=== PATIENT | female | born 1940 | race Caucasian/White ===

== ENCOUNTER → 2016-04-20 | Outpatient (CLI) | payer MEDICARE, OTHER ==
[~2016-04-20] MED LIST: AML2.5T PO; AMOX500C2 PO; BETA1TAB15 PO; CALC-250 PO; CYAN50008 PO; ESOM20SU PO; JANUVIA; LISI20TA PO; LOVA20TA2 PO; LSNP20T; MECL25TA56; MTF500T PO; MULT-35 PO; MULT1TAB63; SALM1CAP4 PO; atenolol; calcium
--- OUTSIDE RECORDS SUMMARY | 2016-04-20 11:09 | XMS REPORT | Continuity of Care Document ---
Author Author [facility] Organization [facility] Address Unknown Phone Unavailable Allergies Active Description Code Type Severity Reaction Onset Reported/Identified Relationship to Patient Clinical Status Yes No Known Drug Allergies [id number] Drug Allergy Moderate N/ A 06/09/2007 Yes No Known Drug Allergies [id number] Drug Allergy Unknown N/ A 11/04/2015 Medications Problems Date Dx Coded Attending Type Code Diagnosis Diagnosed By 09/24/2008 Ot 726.0 09/24/2008 Ot V57.1 04/14/2010 Ot 530.81 04/14/2010 Ot 535.40 06/12/2010 Ot 250.00 DIAB DEMETRIA WO COMPL, TYPE II OR UNSPEC TY 06/12/2010 Ot 575.11 CHRONIC CHOLECYSTITIS 06/12/2010 Ot V58.69 OTH MED,LT,CURRENT USE 10/29/2011 Ot 327.23 OBSTRUCTIVE SLEEP APNEA (ADULT) (PEDIATR 11/26/2013 SHERRIE MORALES, STERLING Stanford Ot 562.10 DIVERTICULOSIS COLON (W/O MENT OF HEMORR 11/26/2013 SHERRIE MORALES, STERLING Stanford Ot 787.20 DYSPHAGIA, UNSPECIFIED 11/26/2013 SHERRIE MORALES, STERLING Stanford Ot V76.51 SCREEN MAL NEOP-COLON 01/02/2014 Ot 719.41 01/02/2014 Ot 733.90 01/02/2014 Ot V76.12 01/02/2014 Ot V76.12 01/02/2014 Ot 789.01 01/02/2014 Ot 789.01 01/02/2014 Ot 530.81 01/02/2014 Ot 553.3 01/02/2014 Ot 753.10 01/02/2014 Ot 789.06 01/02/2014 Ot 575.8 01/02/2014 Ot V72.63 01/02/2014 Ot V72.81 01/02/2014 Ot V74.8 01/02/2014 Ot V76.12 01/02/2014 Ot 780.4 01/02/2014 Ot 784.0 01/02/2014 Ot V76.12 01/02/2014 EDGAR DO CECELIA Austin Ot 715.90 01/02/2014 TALA WALTON CECELIA Austin Ot 733.00 01/02/2014 EDGAR DO CECELIA Austin Ot 719.46 01/02/2014 TALA WALTON CECELIA Austin Ot 272.4 01/02/2014 TALA WALTON CECELIA Austin Ot 401.9 01/02/2014 EDGAR DO CECELIA Austin Ot 780.79 01/02/2014 EDGAR DO CECELIA Austin Ot 786.50 01/02/2014 EDGAR DO, CECELIA Austin Ot V76.12 01/02/2014 ALEX MORALES, ZULEIMA Jensen Ot 530.5 01/02/2014 ALEX MORALES, ZULEIMA Jensen Ot 530.81 01/02/2014 ZULEIMA JOHNSON MD Ot 530.89 01/02/2014 ALEX MORALES, ZULEIMA Jensen Ot 553.3 01/02/2014 ZULEIMA JOHNSON MD Ot 787.03 01/02/2014 SHERRIE MORALES, STERLING Stanford Ot V72.84 01/08/2014 SHANNA YODER Ot 784.7 EPISTAXIS 01/09/2014 CECELIA ARZOLA DO Ot 784.7 EPISTAXIS 02/05/2014 ALEX MORALES, ZULEIMA Jensen Ot V76.12 02/25/2014 ZULEIMA JOHNSON MD Ot V76.12 04/12/2014 Ot 787.01 04/12/2014 Ot 789.06 06/11/2015 Ot Z12.31 ENCNTR SCREEN MAMMOGRAM FOR MALIGNANT NE 06/16/2015 Ot Z12.31 ENCNTR SCREEN MAMMOGRAM FOR MALIGNANT NE 07/30/2015 ZAN STEELE DO Ot G47.33 OBSTRUCTIVE SLEEP APNEA (ADULT) (PEDIATR 08/01/2015 CECELIA EDGAR DO Ot M81.0 AGE-RELATED OSTEOPOROSIS W/O CURRENT PAT 08/06/2015 CECELIA EDGAR DO Ot M81.0 AGE-RELATED OSTEOPOROSIS W/O CURRENT PAT 08/15/2015 ZAN STEELE DO Ot E66.9 OBESITY, UNSPECIFIED 08/15/2015 ZAN STEELE DO Ot G47.33 OBSTRUCTIVE SLEEP APNEA (ADULT) (PEDIATR 08/16/2015 ZAN STEELE DO Ot E66.9 OBESITY, UNSPECIFIED 08/16/2015 ZAN STEELE DO Ot G47.33 OBSTRUCTIVE SLEEP APNEA (ADULT) (PEDIATR 08/27/2015 CECELIA EDGAR DO Ot M81.0 AGE-RELATED OSTEOPOROSIS W/O CURRENT PAT 09/03/2015 CECELIA EDGAR DO, Ot M81.0 AGE-RELATED OSTEOPOROSIS W/O CURRENT PAT 11/04/2015 SHERRIE MORALES, STERLING Stanford Ot R11.0 NAUSEA 11/04/2015 SHERRIE MORALES, STERLING Stanford Ot R13.10 DYSPHAGIA, UNSPECIFIED 11/04/2015 SHERRIE MORALES, STERLING Stanford Ot Z01.818 ENCOUNTER FOR OTHER PREPROCEDURAL EXAMIN 11/05/2015 SHERREI MORALES, STERLING Stanford Ot R11.0 NAUSEA 11/05/2015 SHERRIE MORALES, STERLING Stnaford Ot R13.10 DYSPHAGIA, UNSPECIFIED 11/05/2015 SHERRIE MORALES, STERLING Stanford Ot Z01.818 ENCOUNTER FOR OTHER PREPROCEDURAL EXAMIN 11/06/2015 Ot 753.10 CYSTIC KIDNEY DISEASE, UNSPECIFIED 11/06/2015 Ot 789.06 ABDOMINAL PAIN, EPIGASTRIC 11/06/2015 Ot 575.8 DIS OF GALLBLADDER NEC 11/06/2015 Ot V72.63 PRE-PROCEDURAL LABORATORY EXAMINATION 11/06/2015 Ot V72.81 TITT-QBF-KHWLABSUN CARDIOVASCULAR 11/06/2015 Ot V74.8 SCREEN-BACTERIAL DIS NEC 11/06/2015 Ot V76.12 OTH SCREEN MAMMO-MALIGN NEOPLASM OF MJ 11/06/2015 Ot 780.4 DIZZINESS AND GIDDINESS 11/06/2015 Ot 784.0 HEADACHE 11/06/2015 Ot V76.12 OTH SCREEN MAMMO-MALIGN NEOPLASM OF MJ 11/06/2015 CECELIA EDGAR DO Ot 715.90 OSTEOARTHROS NOS-UNSPEC 11/06/2015 CECELIA EDGAR DO Ot 733.00 OSTEOPOROSIS NOS 11/06/2015 CECELIA EDGAR DO Ot 719.46 JOINT PAIN-L/LEG 11/06/2015 CECELIA EDGAR DO Ot 272.4 HYPERLIPIDEMIA NEC/NOS 11/06/2015 CECELIA EDGAR DO Ot 401.9 HYPERTENSION NOS 11/06/2015 CECELIA EDGAR DO Ot 780.79 OTH MALAISE FATIGUE 11/06/2015 CECELIA EDGAR DO Ot 786.50 CHEST PAIN NOS 11/06/2015 CECELIA EDGAR DO Ot V76.12 OTH SCREEN MAMMO-MALIGN NEOPLASM OF MJ 11/06/2015 ZULEIMA JOHNSON MD Ot 530.5 DYSKINESIA OF ESOPHAGUS 11/06/2015 ZULEIMA JOHNSON MD Ot 530.81 ESOPHAGEAL REFLUX 11/06/2015 ZULEIMA JOHNSON MD Ot 530.89 ESOPHAGUS DISORDERS NEC 11/06/2015 ZULEIMA JOHNSON MD Ot 553.3 DIAPHRAGMATIC HERNIA 11/06/2015 ZULEIMA JOHNSON MD Ot 787.03 VOMITING ALONE 11/06/2015 SHERRIE MORALES, STERLING Stanford Ot V72.84 EXAM PRE-OPERATIVE NOS 11/06/2015 ZULEIMA JOHNSON MD Ot V76.12 OTH SCREEN MAMMO-MALIGN NEOPLASM OF MJ 11/06/2015 Ot 787.01 NAUSEA WITH VOMITING 11/06/2015 Ot 789.06 ABDOMINAL PAIN, EPIGASTRIC 11/06/2015 Ot Z12.31 ENCNTR SCREEN MAMMOGRAM FOR MALIGNANT NE 11/06/2015 ZAN STEELE DO Ot E66.9 OBESITY, UNSPECIFIED 11/06/2015 ZAN STEELE DO Ot G47.33 OBSTRUCTIVE SLEEP APNEA (ADULT) (PEDIATR 11/06/2015 CECELIA EDGAR DO Ot M81.0 AGE-RELATED OSTEOPOROSIS W/O CURRENT PAT 11/06/2015 SHERRIE MORALES, STERLING Stanford Ot K22.2 ESOPHAGEAL OBSTRUCTION 11/06/2015 SHERRIE MORALES, STERLING Stanford Ot K25.9 GASTRIC ULCER, UNSP ACUTE OR CHRONIC, 11/06/2015 STERLING BALDERAS MD Ot K29.80 DUODENITIS WITHOUT BLEEDING 11/12/2015 STERLING BALDERAS MD Ot K22.2 ESOPHAGEAL OBSTRUCTION 11/12/2015 STERLING BALDERAS MD Ot K25.9 GASTRIC ULCER, UNSP ACUTE OR CHRONIC, 11/12/2015 STERLING BALDERAS MD Ot K29.80 DUODENITIS WITHOUT BLEEDING 11/17/2015 STERLING BALDERAS MD Ot K22.2 ESOPHAGEAL OBSTRUCTION 11/17/2015 STERLING BALDERAS MD Ot K25.9 GASTRIC ULCER, UNSP ACUTE OR CHRONIC, 11/17/2015 STERLING BALDERAS MD Ot K29.80 DUODENITIS WITHOUT BLEEDING Procedures Results Encounters ACCT No. Visit Date/Time Discharge Status Pt. Type Provider Facility Loc./Unit Complaint [id number] 11/06/2015 08:08:00 2015 11:05:00 DIS Outpatient STERLING BALDERAS MD [facility] DYSPHAGIA;NAUSEA [id number] 11/04/2015 05:50:00 2015 12:15:00 DIS Outpatient STERLING BALDERAS MD [facility] PREOP DYSPHAGIA;NAUSEA [id number] 07/29/2015 20:40:00 2015 06:15:00 DIS Outpatient ZAN STEELE DO [facility] SLEEP CHANTE,HYPERSOMNIA,EXCESSIVE DAYTIME SLEEP [id number] 01/10/2014 14:21:00 2013 23:59:59 CLS Outpatient ZULEIMA JOHNSON MD [facility] RAD SCREENING [id number] 01/08/2014 23:12:00 2013 00:06:00 DIS Emergency CECELIA ARZOLA DO [facility] ER NOSE BLEED [id number] 01/08/2014 17:05:00 2013 18:45:00 DIS Emergency SHANNA YODER [facility] ER NOSE BLEED [id number] 11/26/2013 09:58:00 2013 13:15:00 DIS Outpatient STERLIGN BALDERAS MD [facility] DYSPHASIA; COLITIS; SCREENING [id number] 11/22/2013 07:20:00 2013 23:59:59 CLS Outpatient STERLING BALDERAS MD [facility] PREOP DYSPHASIA; COLITIS; SCREENING [id number] 11/14/2013 08:25:00 2013 23:59:59 CLS Outpatient ZULEIMA JOHNSON MD [facility] RAD INTERMITTANT EMESIS,GERD [id number] 01/10/2013 08:52:00 2012 23:59:59 CLS Outpatient TALA WALTON CECELIA Austin [facility] RAD SCREENING [id number] 01/02/2013 06:39:00 2012 23:59:59 CLS Outpatient CECELIA EDGAR DO [facility] RAD FATIGUE,HTN [id number] 09/29/2012 13:43:00 2012 23:59:59 CLS Outpatient CECELIA EDGAR DO [facility] RAD RT KNEE PAIN [id number] 06/30/2012 08:31:00 2012 23:59:59 CLS Outpatient TALA WALTONCECELIA Austin [facility] RAD OSTEOPOROSIS [id number] 07/31/2015 09:08:00 ACT Outpatient CECELIA EDGAR DO [facility] RAD OSTEOPOROSIS M81.0 [id number] 07/16/2015 12:41:00 ACT Outpatient ZAN STEELE DO [facility] RT CHANTE ON CPAP,OBESITY [id number] 05/22/2015 10:02:00 Document Registration [id number] 04/11/2014 07:00:00 Document Registration [id number] 01/02/2014 16:10:00 Document Registration [id number] 12/23/2011 08:31:00 Document Registration [id number] 10/28/2011 21:30:00 Document Registration [id number] 06/15/2011 13:50:00 Document Registration [id number] 12/21/2010 07:19:00 Document Registration [id number] 06/12/2010 05:36:00 Document Registration [id number] 06/08/2010 09:16:00 Document Registration [id number] 05/21/2010 12:15:00 Document Registration [id number] 04/15/2010 07:28:00 Document Registration [id number] 04/14/2010 09:38:00 Document Registration [id number] 03/31/2010 07:39:00 Document Registration [id number] 03/30/2010 10:52:00 Document Registration [id number] 12/18/2009 09:29:00 Document Registration [id number] 12/02/2008 09:11:00 Document Registration [id number] 09/24/2008 10:43:00 Document Registration [id number] 07/24/2008 13:11:00 Document Registration
--- NOTE | 2016-04-20 12:58 | Diagnostic Imaging Report ---
PROCEDURE: MRI lumbar spine. TECHNIQUE: Multiplanar, multisequence MRI of the lumbar spine was performed without contrast. INDICATION: Low back pain. FINDINGS: There is minimal retrolisthesis of L1 over L2. The vertebral body heights are preserved. There is disc desiccation at all levels. There is mild disc height loss at L2/3 and L3/4 levels. The bone marrow demonstrates mild endplate edema posteriorly around L3/4 and anteriorly around L1/2 discs. The cauda equina and the conus medullaris appear grossly unremarkable. The cord terminates at the upper L1 level. T12/L1: There is a mild disc bulge with no spinal canal or foraminal stenosis. L1/2: There is minimal retrolisthesis and mild disc bulge. No spinal canal or foraminal stenosis. L2/3: There is a mild disc bulge with no central canal, lateral recess, or foraminal stenosis. L3/4: There is a mild disc bulge and mild facet hypertrophy. No central canal stenosis. There is mild narrowing of the left lateral recess. The right lateral recess is patent. The foramina demonstrate mild narrowing on the left side only. L4/5: There is mild disc bulge and mild facet arthropathy. No central canal or lateral recess stenosis. The foramina demonstrate minimal stenosis bilaterally. L5/S1: There is a mild disc bulge, eccentric to the right with prominent right posterolateral and foraminal components of the herniated disc. There is izbt-gd-ssnnyxwg facet hypertrophy. No central canal or left lateral recess stenosis. There is moderate right lateral recess stenosis abutting the descending S1 nerve root. There is also dwnzefjt-ie-zzssbb stenosis of the right foramen and mild stenosis of the left neural foramen. 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 IMPRESSION: Degenerative changes as described. At L5/S1, there is moderate right lateral recess stenosis abutting the descending right S1 nerve root and right foraminal stenosis with slight compression of the exiting right L5 spinal nerve. Dictated by: Dictated on workstation # [id number]
== END ==
LOC: RAD 11:06
PROVIDERS: ATTEND Orthopaedic Surgery
DX: M51.16 Intervertebral disc disorders with radiculopathy, lumbar region (principal)
CPT/HCPCS: 72148

== ENCOUNTER 2016-10-26 20:54 | Outpatient (CLI) | payer MEDICARE, OTHER | END 2016-10-27 06:30 | disposition home or self-care (01) | LOC: SLEEP 20:54 | PROVIDERS: ATTEND Nurse Practitioner Family | DX: G47.33 Obstructive sleep apnea (adult) (pediatric) (principal); G47.419 Narcolepsy without cataplexy; G47.50 Parasomnia, unspecified | CPT/HCPCS: 95811 ==

== ENCOUNTER → 2018-03-02 | Outpatient (CLI) | payer MEDICARE, OTHER ==
--- NOTE | 2018-03-02 16:52 | Diagnostic Imaging Report ---
INDICATION: Osteoporosis with current pathological fracture COMPARISON: 07/31/2015 FINDINGS: AP Spine L1-L4: [BMD (g/cm2): 1.037] [T-Score: -1.4] [Z-Score: -0.1] [BMD Previous: 76.8] [BMD % Change: 11.3] LT Hip Neck: [BMD (g/cm2): 0.830] [T-Score: -1.5] [Z-Score: 0.3] LT Hip Total: [BMD (g/cm2):0.927] [T-Score:-0.6] [Z-Score: 0.9] [BMD Previous: 0.917] [BMD % Change: N/A] RT Hip Neck: [BMD (g/cm2):0.838] [T-Score:-1.4] [Z-Score:0.3] RT Hip Total: [BMD (g/cm2):0.882] [T-score:-1.0] [Z-Score:0.6] [BMD Previous:0.919] [BMD % Change:N/A] *Indicates significant change from prior examination based on 95% confidence level. World Health Organization criteria for BMD interpretation classify patients as Normal (T-score at or above -1.0), Osteopenic (T-score between -1.0 and -2.5) or Osteoporotic (T-score at or below -2.5). LIMITATIONS AND MODIFICATION: None. FRACTURE RISK (FRAX SCORE): The ten year probability of (%): Major Osteoporotic Fracture: [9.9] Hip Fracture: [1.8] IMPRESSION: 1. Osteopenia (Low bone mass). 2. No Significant change in bone mineral density since prior examination. 3. See below National Osteoporosis Foundation guidelines on when to potentially initiate pharmacologic therapy. Based on the National Osteoporosis Foundation Guidelines, pharmacologic treatment should be initiated in any of the following, unless clinical conditions suggest otherwise: * Any patient with prior fragility fracture of the hip or vertebrae. A spine fracture indicates 5X risk for subsequent spine fracture and 2X risk for subsequent hip fracture. * Osteoporosis (T-score <-2.5). * Postmenopausal women and men age 50 and older with low bone mass/osteopenia (T-score between -1.0 and -2.5) by DXA and 10-year major osteoporotic fracture greater than 20% or a 10-year probability of hip fracture greater than 3%. These fracture risks are supplied above in the FRAX score, if applicable. * Clinician judgement and/or patient preferences may indicate treatment for people with 10-year fracture probabilities above or below these levels. Dictated by: Dictated on workstation # [id number]
--- NOTE | 2018-03-02 19:32 | Diagnostic Imaging Report ---
INDICATION: Routine screening. Comparison is made with prior mammogram from 05/22/2015 and 01/10/2014. 2-D and 3-D bilateral screening mammography was performed with a Computer Aided Detection (CAD) system. FINDINGS: Both breasts are heterogeneously dense, limiting the sensitivity of mammography. The benign-appearing nodule with central calcification in the upper central left breast appears stable. There appears to be a new cluster of microcalcifications in the upper aspect of the right breast at anterior depth. Additional views are recommended. No other suspicious abnormality is seen. Axillae are unremarkable. IMPRESSION: Right breast calcifications. Additional views are recommended for further evaluation. ACR BI-RADS Category 0: Incomplete. (Needs additional imaging evaluation). Result letter will be mailed to the patient. Note: At least 10% of breast cancer is not imaged by mammography. Dictated by: Dictated on workstation # [id number]
== END ==
LOC: RAD 09:56
PROVIDERS: ATTEND Internal Medicine
DX: Z13.820 Encounter for screening for osteoporosis (principal); Z12.31 Encounter for screening mammogram for malignant neoplasm of breast; M80.00XA Age-related osteoporosis with current pathological fracture, unspecified site, initial encounter for fracture; M85.89 Other specified disorders of bone density and structure, multiple sites; R92.1 Mammographic calcification found on diagnostic imaging of breast
CPT/HCPCS: 77067; 77080

== ENCOUNTER → 2018-04-13 | Outpatient (CLI) | payer MEDICARE, OTHER ==
--- NOTE | 2018-04-13 19:30 | Diagnostic Imaging Report ---
INDICATION: Right breast calcifications. Patient presents for additional views. Correlation is made with recent screening study from 03/02/2018. Unilateral right 2-D and 3-D diagnostic mammography was performed including magnification CC and ML views as well as a conventional 90-degree lateral view. The current study was also evaluated with a Computer Aided Detection (CAD) system. FINDINGS: Additional views demonstrate a cluster of suspicious microcalcifications in the upper central right breast anterior depth. These are new since prior exam. These do show some pleomorphism. No associated soft tissue mass is identified. IMPRESSION: Suspicious microcalcifications upper central right breast anterior depth, new since 2016. Tissue sampling is recommended. These would be amenable to stereotactic biopsy. Findings and recommendations were discussed with the patient at the time of the exam. ACR BI-RADS Category 4: Suspicious abnormality. Result letter will be mailed to the patient. Note: At least 10% of breast cancer is not imaged by mammography. Dictated by: Dictated on workstation # [id number]
== END ==
LOC: RAD 12:39
PROVIDERS: ATTEND Internal Medicine
DX: R92.1 Mammographic calcification found on diagnostic imaging of breast (principal)

== ENCOUNTER → 2018-04-26 | Outpatient (CLI) | payer MEDICARE, OTHER ==
[~2018-04-26] VITALS: Ht 162.6 cm; Wt 83.9 kg
[~2018-04-26] MED LIST changes: +LIDOCAINE 1% INJ 20 ML 20 ML VIAL INJ ONE
--- NOTE | 2018-04-26 20:58 | Diagnostic Imaging Report ---
INDICATION: Right breast calcifications. Patient presents for right breast stereotactic biopsy. PROCEDURE: Patient was brought to the stereotactic suite and placed in chair in the sitting upright position. The right breast was positioned in a craniocaudal manner. Calcifications in the superior right breast at mid depth were stereotactically targeted. The skin of the right breast was then prepped and draped in the usual sterile fashion. A small amount of 1% lidocaine was utilized for local anesthesia. An 8-gauge stereotactic needle was advanced into the right breast per stereotactic coordinates. A total of four core biopsies were obtained with the 8-gauge needle and a vacuum assisted device. Specimen radiograph does show microcalcifications in all four specimens. The marker clip was then deployed. Needle was removed and hemostasis was obtained using manual compression. Followup CC and ML mammography demonstrates postbiopsy changes in the right breast with marker clip in place. Previously noted calcifications appear to have been removed. IMPRESSION: Successful right breast stereotactic biopsy of suspicious microcalcifications, as described. Pathology results are currently pending. Dictated by: Dictated on workstation # [id number]
== END ==
LOC: RAD 09:16
PROVIDERS: ATTEND Internal Medicine
DX: D05.11 Intraductal carcinoma in situ of right breast (principal)
CPT/HCPCS: 19081; 88305; 88360

== ENCOUNTER 2018-09-06 08:37 | Outpatient (RCR) | payer MEDICARE, OTHER ==
[2018-07-21 10:03] LABS: BASOPHILS # (AUTO) 0.1 10^3/uL (0.0-0.1); BASOPHILS % (AUTO) 1 % (0-10); EOSINOPHILS # (AUTO) 0.2 10^3/uL (0.0-0.3); EOSINOPHILS % (AUTO) 2 % (0-10); HEMATOCRIT 39 % (35-52); LYMPHOCYTES # (AUTO) 1.7 X 10^3 (1.0-4.0); LYMPHOCYTES % (AUTO) 21 % (12-44); MEAN CORPUSCULAR HEMOGLOBIN 29 PG (25-34); MEAN CORPUSCULAR HGB CONC 34 G/DL (32-36); MEAN CORPUSCULAR VOLUME 86 FL (80-99); MEAN PLATELET VOLUME 10.1 FL (7.4-10.4); MONOCYTES # (AUTO) 0.6 X 10^3 (0.0-1.0); MONOCYTES % (AUTO) 7 % (0-12); NEUTROPHILS # (AUTO) 5.5 X 10^3 (1.8-7.8); NEUTROPHILS % (AUTO) 69 % (42-75); PLATELET COUNT 421 10^3/uL (130-400); RED CELL DISTRIBUTION WIDTH 13.4 % (10.0-14.5)
[2018-07-21 10:19] LABS: ALBUMIN 4.1 GM/DL (3.2-4.5); BILIRUBIN,TOTAL 0.4 MG/DL (0.1-1.0); CALCIUM 9.3 MG/DL (8.5-10.1); CREATININE SERUM 0.93 MG/DL (0.60-1.30); POTASSIUM 3.4 MMOL/L (3.6-5.0); TOTAL PROTEIN 6.6 GM/DL (6.4-8.2)
[~2018-09-06 08:37] MED LIST changes: -LIDOCAINE 1% INJ 20 ML 20 ML VIAL INJ ONE
[2018-09-06 08:55] LABS: BASOPHILS # (AUTO) 0.1 10^3/uL (0.0-0.1); BASOPHILS % (AUTO) 1 % (0-10); EOSINOPHILS # (AUTO) 0.2 10^3/uL (0.0-0.3); EOSINOPHILS % (AUTO) 4 % (0-10); HEMATOCRIT 40 % (35-52); HEMOGLOBIN 13.2 G/DL (11.5-16.0); LYMPHOCYTES # (AUTO) 1.4 X 10^3 (1.0-4.0); LYMPHOCYTES % (AUTO) 22 % (12-44); MEAN CORPUSCULAR HEMOGLOBIN 29 PG (25-34); MEAN CORPUSCULAR HGB CONC 33 G/DL (32-36); MEAN CORPUSCULAR VOLUME 88 FL (80-99); MONOCYTES # (AUTO) 0.6 X 10^3 (0.0-1.0); MONOCYTES % (AUTO) 8 % (0-12); NEUTROPHILS # (AUTO) 4.3 X 10^3 (1.8-7.8); NEUTROPHILS % (AUTO) 65 % (42-75); PLATELET COUNT 334 10^3/uL (130-400); RED CELL DISTRIBUTION WIDTH 13.3 % (10.0-14.5); WHITE BLOOD COUNT 6.6 10^3/uL (4.3-11.0)
[2018-09-06 09:13] LABS: BILIRUBIN,TOTAL 0.4 MG/DL (0.1-1.0); CALCIUM 9.5 MG/DL (8.5-10.1); CREATININE SERUM 1.08 MG/DL (0.60-1.30); POTASSIUM 3.4 MMOL/L (3.6-5.0); TOTAL PROTEIN 6.5 GM/DL (6.4-8.2)
== END 2018-10-03 | disposition home or self-care (01) ==
LOC: ONC 08:37
PROVIDERS: ATTEND Internal Medicine Hematology & Oncology
DX: Z51.0 Encounter for antineoplastic radiation therapy (principal); D05.11 Intraductal carcinoma in situ of right breast
CPT/HCPCS: 36415; 77280; 77290; 77295; 77300; 77307; 77334; 77336; 77417; 80053; 85025; 99202; 99204; 99213

== ENCOUNTER → 2018-12-13 | Outpatient (CLI) | payer MEDICARE, OTHER ==
--- NOTE | 2018-12-13 13:21 | Diagnostic Imaging Report ---
INDICATION: Right breast carcinoma, status post lumpectomy. COMPARISON: Correlation is made with the prior mammograms of 04/13/2018, 04/26/2018, and 05/22/2015. TECHNIQUE: Unilateral right 2D and 3D diagnostic mammography was performed with CAD. FINDINGS: There are post lumpectomy changes in the right breast. Overall increased density at the lumpectomy site is noted, likely owing to scarring. No recurrent mass or suspicious microcalcifications are seen. The right axilla is unremarkable. IMPRESSION: Stable post therapeutic changes in the right breast. Continued followup at 6 months is recommended to confirm stability. ACR BI-RADS Category 2: Benign findings. Result letter will be mailed to the patient. Note: At least 10% of breast cancer is not imaged by mammography. Dictated by: Dictated on workstation # [id number]
== END ==
LOC: RAD 12:37
PROVIDERS: ATTEND Internal Medicine Hematology & Oncology
DX: D05.11 Intraductal carcinoma in situ of right breast (principal); Z90.11 Acquired absence of right breast and nipple; Z98.890 Other specified postprocedural states

== ENCOUNTER 2018-12-18 10:42 | Outpatient (RCR) | payer MEDICARE, OTHER ==
[2018-12-18 10:59] LABS: BASOPHILS % (AUTO) 1 % (0-10); EOSINOPHILS # (AUTO) 0.2 10^3/uL (0.0-0.3); EOSINOPHILS % (AUTO) 2 % (0-10); HEMATOCRIT 39 % (35-52); LYMPHOCYTES # (AUTO) 1.5 X 10^3 (1.0-4.0); LYMPHOCYTES % (AUTO) 24 % (12-44); MEAN CORPUSCULAR HEMOGLOBIN 29 PG (25-34); MEAN CORPUSCULAR HGB CONC 33 G/DL (32-36); MEAN CORPUSCULAR VOLUME 89 FL (80-99); MONOCYTES # (AUTO) 0.6 X 10^3 (0.0-1.0); MONOCYTES % (AUTO) 9 % (0-12); NEUTROPHILS % (AUTO) 64 % (42-75); PLATELET COUNT 281 10^3/uL (130-400); RED CELL DISTRIBUTION WIDTH 13.5 % (10.0-14.5); WHITE BLOOD COUNT 6.2 10^3/uL (4.3-11.0)
[2018-12-18 11:20] LABS: ALBUMIN 3.9 GM/DL (3.2-4.5); BILIRUBIN,TOTAL 0.3 MG/DL (0.1-1.0); POTASSIUM 4.1 MMOL/L (3.6-5.0); TOTAL PROTEIN 6.4 GM/DL (6.4-8.2)
== END 2019-03-18 | disposition home or self-care (01) ==
LOC: ONC 10:42
PROVIDERS: ATTEND Internal Medicine Hematology & Oncology
DX: D05.11 Intraductal carcinoma in situ of right breast (principal); Z90.11 Acquired absence of right breast and nipple; Z98.890 Other specified postprocedural states
CPT/HCPCS: 36415; 80053; 85025; 99213

== ENCOUNTER → 2019-06-21 | Outpatient (CLI) | payer MEDICARE, OTHER ==
--- NOTE | 2019-06-21 11:15 | Diagnostic Imaging Report ---
INDICATION: Right breast carcinoma status post lumpectomy. CORRELATION is made with prior right mammogram from 12/13/2018 as well as bilateral mammograms dating back to 2016. 2-D and 3-D bilateral diagnostic mammography was performed with CAD. Scattered fibroglandular densities are identified bilaterally. Post lumpectomy changes in the central right breast are noted. The overall increased density described previously at the lumpectomy site shows some decrease. No mass on the right is seen. There are vascular calcifications present. The circumscribed nodule in the upper central left breast is stable. There are benign calcifications on the left. No malignant appearing microcalcifications are seen. Axillae are unremarkable. IMPRESSION: BI-RADS Category 2 Post-therapeutic changes on the right. There are no mammographic features suspicious for malignancy identified. Dictated by: Dictated on workstation # [id number]
== END ==
LOC: RAD 09:17
PROVIDERS: ATTEND Internal Medicine Hematology & Oncology
DX: D05.11 Intraductal carcinoma in situ of right breast (principal); Z98.890 Other specified postprocedural states
CPT/HCPCS: 77062; 77066

== ENCOUNTER → 2019-07-19 | Outpatient (CLI) | payer MEDICARE, OTHER ==
[2019-07-19 10:59] LABS: BASOPHILS # (AUTO) 0.1 10^3/uL (0.0-0.1); BASOPHILS % (AUTO) 1 % (0-10); EOSINOPHILS # (AUTO) 0.1 10^3/uL (0.0-0.3); EOSINOPHILS % (AUTO) 1 % (0-10); HEMATOCRIT 40 % (35-52); HEMOGLOBIN 13.1 G/DL (11.5-16.0); LYMPHOCYTES % (AUTO) 26 % (12-44); MEAN CORPUSCULAR HEMOGLOBIN 29 PG (25-34); MEAN CORPUSCULAR HGB CONC 33 G/DL (32-36); MEAN CORPUSCULAR VOLUME 90 FL (80-99); MEAN PLATELET VOLUME 10.1 FL (7.4-10.4); MONOCYTES # (AUTO) 0.6 X 10^3 (0.0-1.0); MONOCYTES % (AUTO) 9 % (0-12); NEUTROPHILS # (AUTO) 4.7 X 10^3 (1.8-7.8); NEUTROPHILS % (AUTO) 63 % (42-75); PLATELET COUNT 339 10^3/uL (130-400); WHITE BLOOD COUNT 7.5 10^3/uL (4.3-11.0)
[2019-07-19 11:17] LABS: ALBUMIN 3.9 GM/DL (3.2-4.5); BILIRUBIN,TOTAL 0.3 MG/DL (0.1-1.0); CALCIUM 9.4 MG/DL (8.5-10.1); POTASSIUM 3.6 MMOL/L (3.6-5.0); TOTAL PROTEIN 6.8 GM/DL (6.4-8.2)
== END ==
LOC: EDSTATUS 03-19 14:51 → ONC 11:09
PROVIDERS: ATTEND Internal Medicine Hematology & Oncology
DX: D05.11 Intraductal carcinoma in situ of right breast (principal); Z90.11 Acquired absence of right breast and nipple
CPT/HCPCS: 80053; 85025; 99213

== ENCOUNTER → 2020-06-23 | Outpatient (CLI) | payer MEDICARE, OTHER ==
--- NOTE | 2020-06-23 11:22 | Diagnostic Imaging Report ---
EXAMINATION: Digital mammogram bilateral screening with CAD. INDICATION: Screening. COMPARISON: This study was compared to the prior exams of 06/21/2019, 12/13/2018, 04/26/2018, 11/30/2018, and 05/22/2015. PERSONAL HISTORY: At this time, there are no current complaints. The patient has had a lumpectomy for carcinoma on the right in 2019. FINDINGS: The post surgical and post therapeutic changes involving the right breast seen on the prior study are again evident. In the interval since the prior study, a few coarse calcifications have developed in the lumpectomy site. These may well be secondary to fat necrosis. Even so, I would recommend that a compression/magnification view of these calcifications be obtained in the CC and true lateral projections for further study. A true lateral view of the right breast should also be performed. The overall appearance of the right breast has not changed significantly otherwise. There is no primary or secondary sign of malignancy noted. The fibroglandular tissue in both breasts is heterogeneously dense. This does limit the sensitivity of this exam. There is no primary or secondary sign of malignancy noted otherwise. IMPRESSION: Additional mammographic views of the right breast would be recommended for further evaluation of the newly developed calcifications in the lumpectomy site. ACR BI-RADS Category 0: Incomplete. (Needs additional imaging evaluation). Result letter will be mailed to the patient. Note: At least 10% of breast cancer is not imaged by mammography. Dictated by: Dictated on workstation # [id number]
== END ==
LOC: RAD 09:16
PROVIDERS: ATTEND Internal Medicine Hematology & Oncology
DX: Z12.31 Encounter for screening mammogram for malignant neoplasm of breast (principal); D05.11 Intraductal carcinoma in situ of right breast; Z98.890 Other specified postprocedural states
CPT/HCPCS: 77063; 77067

== ENCOUNTER → 2020-06-30 | Outpatient (CLI) | payer MEDICARE, OTHER ==
--- NOTE | 2020-06-30 13:39 | Diagnostic Imaging Report ---
INDICATION: Right breast carcinoma status post lumpectomy. Patient has new calcifications at the lumpectomy site. This study is performed for further evaluation. COMPARISON: Correlation is made with the screening study from 06/23/2020. TECHNIQUE: Unilateral right 2D and 3D diagnostic mammography was performed including magnification CC and ML views as well as conventional 90 degree lateral view. FINDINGS: Lumpectomy changes with multiple surgical clips in the upper central right breast are again noted. There is a mixture of vascular and parenchymal calcifications at the lumpectomy site. The parenchymal calcifications do appear to be benign. No suspicious microcalcifications are seen. No mass is detected. IMPRESSION: No mammographic features suspicious for malignancy are identified. The patient may return to routine screening mammography. ACR BI-RADS Category 2: Benign findings. Result letter will be mailed to the patient. Note: At least 10% of breast cancer is not imaged by mammography. Dictated by: Dictated on workstation # [id number]
== END ==
LOC: RAD 12:13
PROVIDERS: ATTEND Nurse Practitioner Adult Health
DX: R92.8 Other abnormal and inconclusive findings on diagnostic imaging of breast (principal); Z85.3 Personal history of malignant neoplasm of breast; Z90.11 Acquired absence of right breast and nipple
CPT/HCPCS: 77065; G0279

== ENCOUNTER → 2020-07-02 | Outpatient (CLI) | payer MEDICARE, OTHER ==
[2020-07-02 09:57] LABS: BASOPHILS % (AUTO) 0 % (0-10); EOSINOPHILS # (AUTO) 0.2 10^3/uL (0.0-0.3); EOSINOPHILS % (AUTO) 2 % (0-10); HEMATOCRIT 40 % (35-52); LYMPHOCYTES # (AUTO) 1.8 10^3/uL (1.0-4.0); LYMPHOCYTES % (AUTO) 23 % (12-44); MEAN CORPUSCULAR HEMOGLOBIN 29 pg (25-34); MEAN CORPUSCULAR HGB CONC 33 g/dL (32-36); MEAN CORPUSCULAR VOLUME 90 fL (80-99); MEAN PLATELET VOLUME 10.5 fL (9.0-12.2); MONOCYTES # (AUTO) 0.6 10^3/uL (0.0-1.0); MONOCYTES % (AUTO) 8 % (0-12); NEUTROPHILS # (AUTO) 5.3 10^3/uL (1.8-7.8); NEUTROPHILS % (AUTO) 67 % (42-75); PLATELET COUNT 281 10^3/uL (130-400)
[2020-07-02 10:12] LABS: ALBUMIN 3.8 GM/DL (3.2-4.5); BILIRUBIN,TOTAL 0.3 MG/DL (0.1-1.0); CREATININE SERUM 0.99 MG/DL (0.60-1.30); POTASSIUM 3.9 MMOL/L (3.6-5.0); TOTAL PROTEIN 6.1 GM/DL (6.4-8.2)
== END ==
LOC: ONC 09:42
PROVIDERS: ATTEND Internal Medicine Hematology & Oncology
DX: C50.411 Malignant neoplasm of upper-outer quadrant of right female breast (principal); R92.8 Other abnormal and inconclusive findings on diagnostic imaging of breast
CPT/HCPCS: 80053; 85025; G0463; 99213

== ENCOUNTER 2020-12-05 11:03 | Day surgery (SDC) | payer MEDICARE, OTHER ==
[~2020-12-05] VITALS: Ht 162.6 cm; Wt 84.4 kg
[~2020-12-05 11:03] MED LIST changes: -CYAN50008 PO; +CYAN50009 PO
[2020-12-05 11:15] VITALS: BP 185/100
[2020-12-05] MEDS ORDERED: LACTATED RINGERS 1,000 ML IV ONE (11:22)
[2020-12-05] MEDS ORDERED: LACTATED RINGERS 1,000 ML IV STA (11:25)
[2020-12-05] MEDS ORDERED: LIDOCAINE JELLY 2% 6 ML SYRINGE MM PRN (11:30)
--- NOTE | 2020-12-05 11:30 | HISTORY AND PHYSICAL ---
DATE OF SERVICE: EGD HISTORY AND PHYSICAL HISTORY OF PRESENT ILLNESS: The patient is a spry, pleasant 80-year-old white female referred by Dr. Pugh for diagnostic EGD. Tuesday morning, she noted the onset of nausea with some epigastric pain. She vomited, reporting no hematemesis or coffee-ground emesis. She then had several loose stools without blood. She felt better as the day went on, but Tuesday night had epigastric pain and then sudden urge to go, at which time she passed melanotic stool with some reported dark clots. She had another episode of rectal bleeding reportedly very dark red in color on Tuesday and presented to Dr. Pugh's office. There, vital signs were stable. Blood counts were obtained and are pending at this time. 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 She denies lightheadedness or syncope. She reports a distant history of peptic ulcer disease. Certainly, it may have been diagnosed via upper GI. She did have an EGD and a colonoscopy [address] Luna[address] At that time, she had a few antral erosions on the tortuous esophagus and was Helicobacter negative. She had mild diverticular disease with no evidence for neoplasia in regards to her colonoscopy. PAST MEDICAL HISTORY: Significant for ductal carcinoma in situ of the right breast in 2019. She underwent lumpectomy and radiation therapy. She has a history of hypertension, longstanding with no history of coronary artery disease and no reported history of pulmonary disease. She does have a history of allergies, for which she takes Singulair and Zyrtec. ADDITIONAL HISTORY: She had been taking 2 aspirin daily for knee pain for the past month, reporting that she is in need of knee replacement. FAMILY HISTORY: Father had an [place] at the age of 46, but lived to the age of 91. Mother had a stroke in her late 80s and lived to the age of 93. She is not aware of any family history for GI tract malignancy. SOCIAL HISTORY: She is a retired with no past smoking or drinking history. PAST SURGICAL HISTORY: Cholecystectomy, a number of years ago as well as total abdominal hysterectomy and bilateral salpingo-oophorectomy, recent 2019 breast lumpectomy and has had trigger finger repair. REVIEW OF SYSTEMS: CONSTITUTIONAL: The patient previously had been feeling well. Denied change in weight, night sweats, chills or fever. PULMONARY: Denies cough, wheezing or shortness of breath. GASTROINTESTINAL: As noted in the HPI. CARDIAC: Denies chest pain, orthopnea, PND, pedal edema or syncope. PHYSICAL EXAMINATION: GENERAL: Reveals a pleasant white female without significant pallor appear to be in no acute distress. VITAL SIGNS: Weight 188 pounds, blood pressure 118/80. CHEST: Clear. CARDIOVASCULAR: Revealed a regular rate and rhythm without significant murmur, S3 or S4. ABDOMEN: Soft, supple. Epigastric pain to palpation is present without mass or organomegaly. EXTREMITIES: Reveal no cyanosis, clubbing or edema. ASSESSMENT AND PLAN: For further investigation of likely upper gastrointestinal bleed, we will be performing EGD in the morning. Prep instructions were discussed. The patient was advised to abstain from aspirin. She was started on she believes pantoprazole, which she will continue. I thank you for the referral of this pleasant lady. Job ID: [id number] DocumentID: [id number] Dictated Date: 12/04/2020 16:21:08 Process Laboratory Specialist Date: 12/04/2020 16:34:10 Dictated By: GALLITO SCHMID MD
[2020-12-05] MEDS ORDERED: DILT120C85 PO (11:41)
[2020-12-05] MEDS ORDERED: LISI20TA26 PO (11:41)
[2020-12-05] MEDS ORDERED: PANT20TA18 PO (11:41)
[2020-12-05] MEDS ORDERED: proPOfol 200 MG/20 ML (DIPRIVAN) VIAL IV ONE (11:59)
--- NOTE | 2020-12-05 12:05 | Pre-Op Note & Conscious Sedat ---
Pre-Operative Progress Note H&P Reviewed The H&P was reviewed, patient examined and no changes noted. Date H&P Reviewed: Dec 05, 2020 Time H&P Reviewed: 12:00 Conscious Sedation Pre-Proced ASA Score 2 For ASA 3 and 4: Consider anesthesia and medical clearance. Also, for patients with a history of failed moderate sedation consider anesthesia. Airway Lungs Heart ASA score ASA 1: a normal healthy patient ASA 2: a patient with a mild systemic disease (mid diabetes, controlled hypertension, obesity ASA 3: a patient with a severe systemic disease that limits activity (angina, COPD, prior Myocardial infarction) ASA 4: a patient with an incapacitating disease that is a constant threat to life (CHF, renal failure) ASA 5: a moribund patient not expected to survive 24 hrs. (ruptured aneurysm) ASA 6: a declared brain- patient whose organs are being harvested. For emergent operations, add the letter E after the classification Mallampati Classification Grade 2 Sedation Plan Analgesia, Amnesia, Plan communicated to team members, Discussed options with patient/fam, Discussed risks with patient/fam The patient is an appropriate candidate to undergo the planned procedure, sedation, and anesthesia. The patient immediately re-assessed prior to indication. GALLITO SCHMID MD Dec 05, 2020 12:05
[2020-12-05] MEDS: HURRICAINE EXT TUBE (BENZOCAINE) XX PRN ×2 (12:19→12:23)
[2020-12-05 12:30] VITALS: BP 174/81
[2020-12-05 12:35] VITALS: BP_SYST 165; BP_SYST 171; BP_DIAS 74; BP_DIAS 83
--- NOTE | 2020-12-05 12:55 | Anesthesia-General Post-Op ---
MAC Patient Condition Mental Status/LOC: Same as Preop Cardiovascular: Satisfactory Nausea/Vomiting: Absent Respiratory: Satisfactory Pain: Controlled Complications: Absent Post Op Complications Complications None Follow Up Care/Instructions Patient Instructions None needed. Anesthesiology Discharge Order Discharge Order Patient is doing well, no complaints, stable vital signs, no apparent adverse anesthesia problems. No complications reported per nursing. NICKI UGALDE CRNA Dec 05, 2020 12:55
[2020-12-05 13:00] VITALS: BP 198/110
[2020-12-05 13:01] VITALS: BP 198/110
--- NOTE | 2020-12-05 16:13 | OPERATIVE REPORT ---
DATE OF SERVICE: EGD SUMMARY INDICATION FOR THE PROCEDURE: GI bleed. DESCRIPTION OF PROCEDURE: The patient was placed in the left lateral decubitus position. The endoscope was inserted in the oral cavity and under direct visualization, the esophagus was intubated. Endoscope was passed down the esophagus through the stomach into the second portion of the duodenum. A careful inspection was made as the endoscope was withdrawn. FINDINGS: The posterior pharynx, epiglottis, arytenoid aperture and true and false vocal folds were unremarkable to gross inspection. Proximal, mid and distal esophagus were unremarkable. No evidence of rings, webs, strictures, Multani's change or bleeding sites. A small hiatal hernia was present. The cardia, fundus, antrum, pylorus, pyloric channel, duodenal bulb and second portion of duodenum were unremarkable as well. There was no evidence for blood in the upper GI tract. ASSESSMENT: Normal EGD, no potential bleeding sites identified. Discussed findings with the patient. She reports that she has not had any evidence for gross blood in the stool since Tuesday evening. She is advised to continue to abstain from aspirin and nonsteroidal medications utilizing Tylenol as needed for pain. She will call the office on Tuesday. We will see her next week and discuss setting up colonoscopy in the near future. I thank you for the referral of this pleasant lady. Job ID: [id number] DocumentID: [id number] Dictated Date: 12/05/2020 12:55:08 Locator Specialist Date: 12/05/2020 16:12:41 Dictated By: GALLITO SCHMID MD
== END 2020-12-05 13:02 | disposition home or self-care (01) ==
LOC: ENDO 11:03
PROVIDERS: ATTEND Internal Medicine
DX: K92.2 Gastrointestinal hemorrhage, unspecified (principal); K44.9 Diaphragmatic hernia without obstruction or gangrene; K21.9 Gastro-esophageal reflux disease without esophagitis; G47.33 Obstructive sleep apnea (adult) (pediatric); I10 Essential (primary) hypertension; Z79.82 Long term (current) use of aspirin; Z87.891 Personal history of nicotine dependence; Z90.49 Acquired absence of other specified parts of digestive tract; Z79.899 Other long term (current) drug therapy
CPT/HCPCS: 87636

== ENCOUNTER 2020-12-12 05:37 | Outpatient (CLI) | payer MEDICARE, OTHER ==
[~2020-12-12] VITALS: Ht 160.6 cm; Wt 84.4 kg
[~2020-12-12 05:37] MED LIST changes: +DILT120C85 PO; +LISI20TA26 PO; +PANT20TA18 PO
== END 2020-12-15 14:38 | disposition home or self-care (01) ==
LOC: PREOP 05:37
PROVIDERS: ATTEND Internal Medicine
DX: Z01.818 Encounter for other preprocedural examination (principal)

== ENCOUNTER 2020-12-19 09:14 | Day surgery (SDC) | payer MEDICARE, OTHER ==
--- NOTE | 2020-12-14 15:32 | HISTORY AND PHYSICAL ---
DATE OF SERVICE: COLONOSCOPY HISTORY AND PHYSICAL HISTORY: The patient is an 80-year-old white female who underwent EGD evaluation by myself on 12/05/2020 for GI bleed with history of aspirin usage. EGD failed to reveal potential bleeding site. Off of aspirin, she has had no further bleeding, but is scheduled for colonoscopy for further investigation of significant bleeding. She is a referral from Dr. Pugh. She continues to deny abdominal pain or change in bowel habits, has remained off of aspirin and she was taking in the form of a back pain relief [id number]-uso-plmadco aspirin containing medication. She has had no significant flares of stable mechanical low back pain. She did undergo colonoscopy last by Dr. Luna 7 years ago. At that time, she had mild diverticular disease with no evidence for neoplasia. FAMILY HISTORY: She is not aware of any family history for GI tract malignancy. PAST MEDICAL HISTORY: Significant for ductal carcinoma in situ of the right breast in 2019. She underwent lumpectomy and radiation therapy. She has history of hypertension with no history of coronary artery disease and no history of pulmonary disease. PHYSICAL EXAMINATION: GENERAL: Reveals a white female, appeared to be in no acute distress. No evidence of pallor. HEENT: Sclerae nonicteric. HEENT exam unremarkable. CHEST: Clear. CARDIOVASCULAR: Reveals a regular rate and rhythm without significant murmur, S3 or S4. ABDOMEN: Soft, supple without mass, organomegaly or tenderness. EXTREMITIES: Reveal no cyanosis, clubbing or edema. ASSESSMENT AND PLAN: The patient is being set up for diagnostic colonoscopy due to recent GI bleed with negative EGD. Prep instructions were given and questions were answered. Job ID: [id number] DocumentID: [id number] Dictated Date: 12/11/2020 10:14:29 Full Time Paramedic Date: 12/11/2020 10:47:33 Dictated By: GALLITO SCHMID MD
[~2020-12-19] VITALS: Ht 160.6 cm; Wt 84.4 kg
[2020-12-19] MEDS ORDERED: LACTATED RINGERS 1,000 ML IV ONE (09:23)
[2020-12-19] MEDS ORDERED: LIDOCAINE JELLY 2% 6 ML SYRINGE MM PRN (09:30)
[2020-12-19] MEDS ORDERED: LACTATED RINGERS 1,000 ML IV STA (09:30)
[2020-12-19 09:45] VITALS: BP 192/85
--- NOTE | 2020-12-19 11:14 | Pre-Op Note & Conscious Sedat ---
Pre-Operative Progress Note H&P Reviewed The H&P was reviewed, patient examined and no changes noted. Date H&P Reviewed: Dec 19, 2020 Time H&P Reviewed: 10:35 Conscious Sedation Pre-Proced ASA Score 2 For ASA 3 and 4: Consider anesthesia and medical clearance. Also, for patients with a history of failed moderate sedation consider anesthesia. Airway Lungs Heart ASA score ASA 1: a normal healthy patient ASA 2: a patient with a mild systemic disease (mid diabetes, controlled hypertension, obesity ASA 3: a patient with a severe systemic disease that limits activity (angina, COPD, prior Myocardial infarction) ASA 4: a patient with an incapacitating disease that is a constant threat to life (CHF, renal failure) ASA 5: a moribund patient not expected to survive 24 hrs. (ruptured aneurysm) ASA 6: a declared brain- patient whose organs are being harvested. For emergent operations, add the letter E after the classification Mallampati Classification Grade 3 Sedation Plan Analgesia, Amnesia, Plan communicated to team members, Discussed options with patient/fam, Discussed risks with patient/fam The patient is an appropriate candidate to undergo the planned procedure, sedation, and anesthesia. The patient immediately re-assessed prior to indication. GALLITO SCHMID MD Dec 19, 2020 11:14
[2020-12-19] MEDS ORDERED: PROPOFOL INJECTION 50 ML IV ONE (11:54)
[2020-12-19] MEDS ORDERED: ATROPINE INJ 0.4 MG/ML SDV ONE (12:10)
[2020-12-19 12:37] VITALS: BP 169/85
[2020-12-19 12:42] VITALS: BP 175/85
[2020-12-19 12:45] VITALS: BP 175/81
[2020-12-19 13:10] VITALS: BP 170/82
[2020-12-19 13:18] VITALS: BP 170/82
--- NOTE | 2020-12-19 13:35 | Anesthesia-General Post-Op ---
MAC Patient Condition Mental Status/LOC: Same as Preop Cardiovascular: Satisfactory Nausea/Vomiting: Absent Respiratory: Satisfactory Pain: Controlled Complications: Absent Post Op Complications Complications None Follow Up Care/Instructions Patient Instructions None needed. Anesthesiology Discharge Order Discharge Order Patient is doing well, no complaints, stable vital signs, no apparent adverse anesthesia problems. No complications reported per nursing. NICKI UGALDE CRNA Dec 19, 2020 13:35
--- NOTE | 2020-12-19 19:02 | OPERATIVE REPORT ---
DATE OF SERVICE: COLONOSCOPY SUMMARY INDICATION FOR THE PROCEDURE: GI bleed. DESCRIPTION OF PROCEDURE: The patient was placed in the left lateral decubitus position. Prior to undergoing colonoscopy, digital rectal evaluation was performed. Anal sphincter tone was normal. Perianal reflexes intact. A small polyp was noted at the 7 o'clock position just inside the anal verge, it was soft. No induration was noted. No other abnormalities were noted on digital inspection, anal canal or distal rectal vault. Colonoscope was inserted in the rectum and under direct visualization advanced to the cecum. The cecum was identified by identification of the ileocecal valve and cecal strap. Photographic documentation was obtained. Quality of prep was good. FINDINGS: There was no evidence for internal or external hemorrhoids. There was a 6 mm adenomatous appearing vascular polyp noted in the distal rectum. It was photographed and biopsied and ablated with no subsequent blood loss. No other rectal abnormalities were noted. Several small sigmoid diverticulum were present without evidence for diverticulitis. No other sigmoid colonic abnormalities were appreciated. The descending colon, splenic flexure, transverse colon, hepatic flexure, ascending colon and cecum were unremarkable. ASSESSMENT: Vascular adenomatous appearing polyp was noted in the distal rectum, likely source of this patient's bleeding. It was biopsied and ablated. As long as there is no evidence for dysplasia or microscopic malignancy considering this patient's age, we will not advocate future surveillance colonoscopy. I thank you for the referral of this pleasant lady. Job ID: [id number] DocumentID: [id number] Dictated Date: 12/19/2020 13:17:49 Milker Machine Date: 12/19/2020 19:01:41 Dictated By: GALLITO SCHMID MD
== END 2020-12-19 13:20 | disposition home or self-care (01) ==
LOC: ENDO 09:14
PROVIDERS: ATTEND Internal Medicine
DX: K62.1 Rectal polyp (principal); K57.31 Diverticulosis of large intestine without perforation or abscess with bleeding; I10 Essential (primary) hypertension; G47.33 Obstructive sleep apnea (adult) (pediatric); E66.9 Obesity, unspecified; Z68.32 Body mass index [BMI] 32.0-32.9, adult; Z99.89 Dependence on other enabling machines and devices; Z79.899 Other long term (current) drug therapy; Z85.3 Personal history of malignant neoplasm of breast

== ENCOUNTER 2021-03-23 11:52 | Observation (INO) | payer MEDICARE, OTHER ==
[~2021-03-23] VITALS: Ht 162.6 cm; Wt 84.6 kg
[2021-03-23] MEDS ORDERED: ONDANSETRON 4 MG/2 ML (SDV) Z0FRAN ONE (12:02)
--- NOTE | 2021-03-23 12:12 | ED GI ---
General Chief Complaint: Abdominal/GI Problems Stated Complaint: NAUSEA,VOMITING Source of Information: Patient Exam Limitations: No Limitations History of Present Illness Date Seen by Provider: Mar 23, 2021 Time Seen by Provider: 12:10 Initial Comments To ER with nausea vomiting and severe dizziness. This began yesterday. Normal bowel movement this morning. No fever no chills. She was given 25 mg of Phenergan intramuscular by EMS in route to the hospital. Primary care is Dr. Pugh. History of vertigo years ago. She had a headache yesterday but none today. Timing/Duration: 1-2 Days Severity/Quality: Moderate Radiation: No Radiation Allergies and Home Medications Allergies Coded Allergies: No Known Drug Allergies (Unverified , 11/04/15) Patient Home Medication List Home Medication List Reviewed: Yes Diltiazem HCl (Diltiazem ER) 120 Mg Capsule.er, 120 MG PO DAILY, (Reported) Entered as Reported by: VALDEMAR GEORGES on 12/05/20 1141 Lisinopril (Lisinopril) 20 Mg Tablet, 20 MG PO DAILY, (Reported) Entered as Reported by: VALDEMAR GEORGES on 12/05/20 1141 Pantoprazole Sodium (Pantoprazole Sodium) 20 Mg Tablet.dr, 20 MG PO DAILY, (Reported) Entered as Reported by: VALDEMAR GEORGES on 12/05/20 1141 Review of Systems Review of Systems Constitutional: see HPI, dizziness EENTM: No Symptoms Reported Respiratory: No Symptoms Reported Cardiovascular: No Symptoms Reported Gastrointestinal: See HPI, Nausea, Vomiting Genitourinary: No Symptoms Reported Musculoskeletal: no symptoms reported Skin: no symptoms reported Psychiatric/Neurological: No Symptoms Reported Endocrine: No Symptoms Reported Hematologic/Lymphatic: No Symptoms Reported Past Fqgezaq-Cuhsxv-Hqzxbq Hx Immunizations Up To Date First/Initial COVID19 Vaccinat: 03/13 Second COVID19 Vaccination [place]: 04/13 Third COVID19 Vaccination Date: MODERNA Seasonal Allergies Seasonal Allergies: Yes Past Medical History Surgeries: Yes (HYSTERECTOMY X 2, HEART CATH, RIGHT HAND) Gallbladder, Hysterectomy, Orthopedic Respiratory: Yes (SLEEP APNEA, USES BI-PAP) Cardiac: No Hypertension Neurological: No Reproductive Disorders: No Sexually Transmitted Disease: No Genitourinary: No Gastrointestinal: Yes Gastroesophageal Reflux Musculoskeletal: No Endocrine: Yes (PRE DIABETIC) HEENT: Yes Cataract Cancer: Yes (RIGHT BREAST) Breast Did You Recieve Any Treatments: Yes What Type of Treatment Did You: Radiation, Surgical Intervention Psychosocial: No Integumentary: No Blood Disorders: No Family Medical History Diabetes mellitus 19 FATHER G8 SISTER FH: breast cancer G8 SISTER FH: heart disease FH: melanoma G8 BROTHER FH: stroke 19 MOTHER Physical Exam Vital Signs Vital Signs - First Documented 03/23/21 12:08 Temp 36.3 Pulse 76 Resp 18 B/P (MAP) 142/98 (113) Pulse Ox 96 Capillary Refill : Height/Weight/BMI Height: 5'4.00" Weight: 185lbs. 0.0oz. 83.623753nb; 32.72 BMI Method:Stated General Appearance: WD/WN, no apparent distress, other (Alert, answers questions appropriately. Oriented. Appears to feel quite ill. Diaphoretic.) HEENT: PERRL/EOMI, normal ENT inspection Respiratory: no respiratory distress, no accessory muscle use Gastrointestinal: normal bowel sounds, non tender Extremities: normal range of motion, non-tender Neurologic/Psychiatric: alert, normal mood/affect, oriented x 3 Skin: normal color, warm/dry Progress/Results/Core Measures Results/Orders Lab Results Laboratory Tests Test 03/23/21 12:08 03/23/21 13:42 Range/Units White Blood Count 13.1 H 4.3-11.0 10^3/uL Red Blood Count 4.93 3.80-5.11 10^6/uL Hemoglobin 14.7 11.5-16.0 g/dL Hematocrit 46 35-52 % Mean Corpuscular Volume 93 80-99 fL Mean Corpuscular Hemoglobin 30 25-34 pg Mean Corpuscular Hemoglobin Concent 32 32-36 g/dL Red Cell Distribution Width 13.0 10.0-14.5 % Platelet Count 325 130-400 10^3/uL Mean Platelet Volume 10.3 9.0-12.2 fL Immature Granulocyte % (Auto) 0 % Neutrophils (%) (Auto) 80 H 42-75 % Lymphocytes (%) (Auto) 14 12-44 % Monocytes (%) (Auto) 5 0-12 % Eosinophils (%) (Auto) 0 0-10 % Basophils (%) (Auto) 1 0-10 % Neutrophils # (Auto) 10.5 H 1.8-7.8 10^3/uL Lymphocytes # (Auto) 1.9 1.0-4.0 10^3/uL Monocytes # (Auto) 0.7 0.0-1.0 10^3/uL Eosinophils # (Auto) 0.0 0.0-0.3 10^3/uL Basophils # (Auto) 0.1 0.0-0.1 10^3/uL Immature Granulocyte # (Auto) 0.1 0.0-0.1 10^3/uL Prothrombin Time 13.5 12.2-14.7 SEC INR Comment 1.0 0.8-1.4 Sodium Level 141 135-145 MMOL/L Potassium Level 3.9 3.6-5.0 MMOL/L Chloride Level 104 98-107 MMOL/L Carbon Dioxide Level 25 21-32 MMOL/L Anion Gap 12 5-14 MMOL/L Blood Urea Nitrogen 19 H 7-18 MG/DL Creatinine 1.04 0.60-1.30 MG/DL Estimat Glomerular Filtration Rate 54 BUN/Creatinine Ratio 18 Glucose Level 142 H 70-105 MG/DL Calcium Level 9.6 8.5-10.1 MG/DL Corrected Calcium 9.4 8.5-10.1 MG/DL Total Bilirubin 0.3 0.1-1.0 MG/DL Aspartate Amino Transf (AST/SGOT) 18 5-34 U/L Alanine Aminotransferase (ALT/SGPT) 16 0-55 U/L Alkaline Phosphatase 77 40-136 U/L Total Protein 7.7 6.4-8.2 GM/DL Albumin 4.3 3.2-4.5 GM/DL Lipase 41 8-78 U/L Urine Color YELLOW Urine Clarity CLEAR Urine pH 7.0 5-9 Urine Specific Terry 1.020 1.016-1.022 Urine Protein TRACE H NEGATIVE Urine Glucose (UA) NEGATIVE NEGATIVE Urine Ketones NEGATIVE NEGATIVE Urine Nitrite NEGATIVE NEGATIVE Urine Bilirubin NEGATIVE NEGATIVE Urine Urobilinogen 0.2 < = 1.0 MG/DL Urine Leukocyte Esterase NEGATIVE NEGATIVE Urine RBC (Auto) TRACE-I H NEGATIVE Urine RBC NONE /HPF Urine WBC NONE /HPF Urine Crystals NONE /LPF Urine Bacteria NEGATIVE /HPF Urine Casts NONE /LPF Urine Mucus NEGATIVE /LPF Urine Culture Indicated NO My Orders Orders - KIAH NOGUEIRA EDGER SAW OPERATOR Cbc With Automated Diff (03/23/21 11:58) Comprehensive Metabolic Panel (03/23/21 11:58) Lipase (03/23/21 11:58) Ua Culture If Indicated (03/23/21 11:58) Protime With Inr (03/23/21 11:58) Ed Iv/Invasive Line Start (03/23/21 11:58) Abdomen, Flat & Upright/Decub (03/23/21 11:58) Ondansetron Injection (Zofran Injectio (03/23/21 12:15) Ondansetron Injection (Zofran Injectio (03/23/21 12:02) Scopolamine Patch (Transderm-Scop Patch) (03/23/21 12:15) Ct Angio Head/Neck (03/23/21 12:58) Straight Cath (Urinary) (03/23/21 12:58) Iohexol Injection (Omnipaque 350 Mg/Ml 1 (03/23/21 13:30) Received Contrast (Hold Metformin- Contr (03/23/21 13:30) Sodium Chloride Flush (Catheter Flush Sy (03/23/21 13:30) Ns (Ivpb) (Sodium Chloride 0.9% Ivpb Bag (03/23/21 13:30) Medications Given in ED Current Medications Medications Dose Ordered Sig/Valery Route Start Time Stop Time Status Last Admin Dose Admin Ondansetron HCl 8 mg ONCE ONCE IVP 03/23/21 12:15 03/23/21 12:16 DC 03/23/21 12:04 8 MG Scopolamine 1.5 mg ONCE ONCE TD 03/23/21 12:15 03/23/21 12:16 DC 03/23/21 12:32 1.5 MG Vital Signs/I&O 03/23/21 12:08 Temp 36.3 Pulse 76 Resp 18 B/P (MAP) 142/98 (113) Pulse Ox 96 Departure Communication (Admissions) 1347-she is alert and oriented up walking to the bathroom with only standby assistance and reports that she feels much better now. 1506-states that she is had a recurrence of dizziness and nausea. She would prefer not to stay in the hospital but agrees to stay 1 night. Given her advanced age and uncontrollable vomiting and dizziness on arrival and albeit mild but recurrent symptoms it would be best to watch her in the hospital overnight. Spoke with Dr. Bueno he agrees. NAME: JEWEL OLIVO [facility] REC#: [id number] PT STATUS: REG ER : 1940 PHYSICIAN: KIAH NOGUEIRA APRN ADMIT DATE: 03/23/21/ER Draft Date of Exam:03/23/21 ABDOMEN, FLAT & UPRIGHT/DECUB INDICATION: Nausea and vomiting. TIME OF EXAM: 12:25 PM No prior studies are available for comparison. Surgical clips are noted in the gallbladder fossa. Bowel gas pattern appears nonobstructed. No definite free air on this supine radiograph is identified. No pathologic calcifications are seen. There are postop changes of posterior instrument fusion of the lumbosacral spine. IMPRESSION: No acute feature detected. Dictated on workstation # [id number] Dict: 03/23/21 1314 Trans: 03/23/21 1317 [facility] [id number] Interpreted by: LILIANA BARBER MD Electronically signed by: Impression Primary Impression: Intractable vertigo Additional Impression: Nausea & vomiting Disposition: 09 ADMITTED INPATIENT Condition: Stable Admissions Decision to Admit Reason: Admit from ER (General) Decision to Admit/Date: Mar 23, 2021 Time/Decision to Admit Time: 13:17 Departure-Patient Inst. Referrals: CECELIA PUGH DO (PCP/Family) Primary Care Physician KIAH NOGUEIRA APRN Mar 23, 2021 12:12
[2021-03-23] MEDS ORDERED: SCOPOLAMINE 1.5 MG (TRANSDERM-SCOP) PATCH TD ONE (12:15)
[2021-03-23] MEDS ORDERED: ONDANSETRON 4 MG/2 ML (SDV) Z0FRAN IVP ONE (12:15)
[2021-03-23 12:16] LABS: BASOPHILS # (AUTO) 0.1 10^3/uL (0.0-0.1); BASOPHILS % (AUTO) 1 % (0-10); EOSINOPHILS % (AUTO) 0 % (0-10); HEMATOCRIT 46 % (35-52); HEMOGLOBIN 14.7 g/dL (11.5-16.0); LYMPHOCYTES # (AUTO) 1.9 10^3/uL (1.0-4.0); LYMPHOCYTES % (AUTO) 14 % (12-44); MEAN CORPUSCULAR HEMOGLOBIN 30 pg (25-34); MEAN CORPUSCULAR HGB CONC 32 g/dL (32-36); MEAN CORPUSCULAR VOLUME 93 fL (80-99); MEAN PLATELET VOLUME 10.3 fL (9.0-12.2); MONOCYTES # (AUTO) 0.7 10^3/uL (0.0-1.0); MONOCYTES % (AUTO) 5 % (0-12); NEUTROPHILS # (AUTO) 10.5 10^3/uL (1.8-7.8); NEUTROPHILS % (AUTO) 80 % (42-75); PLATELET COUNT 325 10^3/uL (130-400); WHITE BLOOD COUNT 13.1 10^3/uL (4.3-11.0)
[2021-03-23 12:26] LABS: PROTHROMBIN TIME PATIENT 13.5 SEC (12.2-14.7)
[2021-03-23 12:36] LABS: ALBUMIN 4.3 GM/DL (3.2-4.5); BILIRUBIN,TOTAL 0.3 MG/DL (0.1-1.0); CALCIUM 9.6 MG/DL (8.5-10.1); CREATININE SERUM 1.04 MG/DL (0.60-1.30); POTASSIUM 3.9 MMOL/L (3.6-5.0); TOTAL PROTEIN 7.7 GM/DL (6.4-8.2)
--- NOTE | 2021-03-23 13:17 | Diagnostic Imaging Report ---
INDICATION: Nausea and vomiting. TIME OF EXAM: 12:25 PM No prior studies are available for comparison. Surgical clips are noted in the gallbladder fossa. Bowel gas pattern appears nonobstructed. No definite free air on this supine radiograph is identified. No pathologic calcifications are seen. There are postop changes of posterior instrument fusion of the lumbosacral spine. IMPRESSION: No acute feature detected. Dictated by: Dictated on workstation # [id number]
[2021-03-23] MEDS ORDERED: IOHEXOL 350 MG/ML 100 ML (OMNIPAQUE 350) VIAL IV ONE (13:30)
[2021-03-23] MEDS ORDERED: CATHETER FLUSH 10 ML SYR IV PRN ×2 (13:30→15:45)
[2021-03-23] MEDS ORDERED: NS 100 ML (IVPB) BAG IV ONE (13:30)
[2021-03-23] MEDS ORDERED: HOLD METFORMIN - RECEIVED CONTRAST 20 ML VIAL IV SCH (13:30)
[2021-03-23 13:55] LABS: BILIRUBIN,URINE NEGATIVE (NEGATIVE); CLARITY,URINE CLEAR; COLOR,URINE YELLOW; GLUCOSE, URINE (UA) NEGATIVE (NEGATIVE); KETONES,URINE NEGATIVE (NEGATIVE); LEUKOCYTE ESTERASE ,URINE NEGATIVE (NEGATIVE); NITRITE,URINE NEGATIVE (NEGATIVE); PROTEIN,URINE TRACE (NEGATIVE)
[2021-03-23 14:12] LABS: BACTERIA,URINE NEGATIVE /HPF
--- NOTE | 2021-03-23 14:48 | Diagnostic Imaging Report ---
INDICATION: Vomiting and dizziness and headache. TECHNIQUE: Contiguous noncontrast images were obtained from the skull base through the vertex. After intravenous contrast administration, helical CT angiography of the neck was performed. Source data was reformatted into 3D MIP projections. Delayed post contrast acquisition was also obtained. Auto Exposure Controls were utilized during the CT exam to meet ALARA standards for radiation dose reduction. COMPARISON: There is no prior CT for comparison. FINDINGS: Noncontrast brain CT demonstrates no extra-axial fluid collection. No intracranial hemorrhage. No intracranial mass or mass effect. No midline shift. The ventricles are normal in size and position. Calvarial windows are unremarkable. CTA NECK FINDINGS: Thoracic aortic arch shows atherosclerotic plaquing but no evidence of aneurysm or dissection. The great vessel origins are patent and without stenosis. The common carotid arteries are patent bilaterally. The carotid bifurcations and internal carotids and external carotids are patent and without stenosis. There is minimal plaquing in the carotid bifurcations without stenosis. The vertebral arteries on both sides are patent with the left being dominant and the right being congenitally small. CTA HEAD FINDINGS: The distal vertebral arteries are patent. There is some eccentric plaquing in the left vertebral artery in the V4 segment, with moderate stenosis. The basilar artery and cerebellar branches are patent. The posterior cerebral arteries appear patent, with scattered areas of plaquing. The distal internal carotid arteries, anterior cerebral arteries, and middle cerebral arteries and their branches appear patent. There is patency of the dural venous sinuses. Delayed images demonstrate no enhancing intracranial lesion. IMPRESSION: 1. CT head without contrast shows no acute intracranial abnormality. 2. CTA of the neck demonstrates some plaquing of the aortic arch but no evidence of aneurysm or dissection. Carotid and vertebral territories are patent. The left vertebral artery is dominant. 3. CTA head demonstrates no major vessel occlusion or aneurysmal disease. There is moderate plaquing in the left vertebral artery in the V4 segment. There are scattered areas of plaquing in the posterior cerebral arteries. There is no major vessel occlusion. Dictated by: Dictated on workstation # [id number]
[2021-03-23 15:33] VITALS: BP 191/81
[2021-03-23] MEDS ORDERED: PROMETHAZINE INJ 25 MG/ML (PHENERGAN) AMP IV PRN (15:45)
[2021-03-23] MEDS ORDERED: ONDANSETRON 4 MG/2 ML (SDV) Z0FRAN IV PRN (15:45)
[2021-03-23] MEDS: LACTATED RINGERS 1,000 ML IV SCH (16:46)
[2021-03-23] MEDS ORDERED: LISI40TA9 PO (16:57)
[2021-03-23] MEDS ORDERED: hydrALAZINE (APESOLINE) 20 MG/ML VIAL IV PRN (18:00)
[2021-03-23 19:35] VITALS: BP 155/81
[2021-03-23] MEDS ORDERED: fentaNYL INJ 100 MCG/2 ML AMP IVP PRN (21:15)
[2021-03-23 23:03] VITALS: BP 116/64
[2021-03-24] MEDS: LACTATED RINGERS 1,000 ML IV SCH ×2 (03:20→11:52)
[2021-03-24 03:27] VITALS: BP 106/62
[2021-03-24 06:20] LABS: BASOPHILS % (AUTO) 0 % (0-10); EOSINOPHILS # (AUTO) 0.2 10^3/uL (0.0-0.3); EOSINOPHILS % (AUTO) 2 % (0-10); HEMATOCRIT 37 % (35-52); LYMPHOCYTES % (AUTO) 21 % (12-44); MEAN CORPUSCULAR HEMOGLOBIN 30 pg (25-34); MEAN CORPUSCULAR HGB CONC 33 g/dL (32-36); MEAN CORPUSCULAR VOLUME 92 fL (80-99); MEAN PLATELET VOLUME 10.7 fL (9.0-12.2); MONOCYTES # (AUTO) 0.7 10^3/uL (0.0-1.0); MONOCYTES % (AUTO) 8 % (0-12); NEUTROPHILS # (AUTO) 6.4 10^3/uL (1.8-7.8); NEUTROPHILS % (AUTO) 69 % (42-75); PLATELET COUNT 296 10^3/uL (130-400); WHITE BLOOD COUNT 9.3 10^3/uL (4.3-11.0)
[2021-03-24 06:28] LABS: POTASSIUM 3.7 MMOL/L (3.6-5.0)
[2021-03-24 06:29] LABS: CALCIUM 8.7 MG/DL (8.5-10.1)
[2021-03-24 06:33] LABS: CREATININE SERUM 0.9 MG/DL (0.60-1.30)
[2021-03-24 07:55] VITALS: BP 124/76
--- NOTE | 2021-03-24 10:26 | Diagnostic Imaging Report ---
PROCEDURE: US carotid duplex, bilateral. TECHNIQUE: Multiple real-time grayscale images were obtained over the carotid arteries in various projections, bilaterally. Additional spectral analysis and color Doppler duplex images were also obtained. INDICATION: Vomiting with dizziness and headache. Comparison with CTA neck 03/23/2021. FINDINGS: There is scattered plaquing within the carotid arteries. This is mild in nature with no hemodynamic changes demonstrated. Carotid ratios are normal. The left vertebral artery is dominant as was noted on CTA. Right vertebral artery was not demonstrated today though was shown to be patent on the CTA. IMPRESSION: 1. There are no hemodynamic changes with mild atherosclerotic plaquing. Stenosis estimated less than 30% within the internal carotid arteries. 2. Dominant left vertebral artery. Parameters based on the consensus panel Gonzalez-Scale and Doppler ultrasound criteria published December 2002, Radiology, Volume 229. DOPPLER (peak systolic velocity M/S Right Left CCA .54 .79 ICA Proximal .79 1.16 ICA Mid .94 1.01 ICA Distal 1.03 .86 RATIO 1.92 1.47 ECA 1.57 2.28 VERT NOT SEEN .75 Dictated by: Dictated on workstation # [id number]
--- NOTE | 2021-03-24 10:47 | Physical Therapy Evaluation ---
PT Evaluation-General Medical Diagnosis Admission Date Mar 23, 2021 at 12:54 Medical Diagnosis: vomiting, dizziness Onset Date: Mar 23, 2021 Therapy Diagnosis Therapy Diagnosis: independent with mobility Height/Weight Height (Feet): 5 Height (Inches): 4.00 Weight (Pounds): 185 Weight (Ounces): 0.0 Precautions Precautions/Isolations: Fall Prevention, Standard Precautions Referral Physician: Karla Dozier DO Reason for Referral: Evaluation/Treatment Medical History Additional Medical History Past Medical History Surgeries: Yes (HYSTERECTOMY X 2, HEART CATH, RIGHT HAND) Gallbladder, Hysterectomy, Orthopedic Respiratory: Yes (SLEEP APNEA, USES BI-PAP) Cardiac: No Hypertension Neurological: No Reproductive Disorders: No Sexually Transmitted Disease: No Genitourinary: No Gastrointestinal: Yes Gastroesophageal Reflux Musculoskeletal: No Endocrine: Yes (PRE DIABETIC) HEENT: Yes Cataract Cancer: Yes (RIGHT BREAST) Breast Did You Recieve Any Treatments: Yes What Type of Treatment Did You: Radiation, Surgical Intervention Psychosocial: No Integumentary: No Blood Disorders: No Reviewed History: Yes Social History Home: Single Level Current Living Status: Spouse Entry Into Home: Stairs Without Railing PT Steps Into Home: 2 Prior Prior Level of Function SCALE: Activities may be completed with or without assistive devices. 1-Ngjsfdlnfw-zlkwcuh completes the activity by him/herself with no assistance from a helper. 5-Set-up or Clean-up Assistance-helper sets up or cleans up; patient completes activity. Fonda assists only prior to or following the activity. 4-Supervision or Touching Assistance-helper provides verbal cues and/or touching/steadying and/or contact guard assistance as patient completes activity. Assistance may be provided throughout the activity or intermittently. 3-Partial/Moderate Assistance-helper does LESS THAN HALF the effort. Fonda lifts, holds or supports trunk or limbs, but provides less than half the effort. 2-Substantial/Maximal Assistance-helper does MORE THAN HALF the effort. Fonda lifts or holds trunk or limbs and provides more than half the effort. 3-Oycnrdoxd-vnzmdl does ALL the effort. Patient does none of the effort to complete the activity. Or, the assistance of 2 or more helpers is required for the patient to complete the activity. If activity was not attempted, code reason: 7-Patient Refused. 9-Not Applicable-not attempted and the patient did not perform the activity before the current illness, exacerbation or injury. 10-Not Attempted due to Environmental Limitations-(lack of equipment, weather restraints, etc.). 88-Not Attempted due to Medical Conditions or Safety Concerns. Bed Mobility: 6 Transfers (B,C,W/C): 6 Gait: 6 Stairs: 6 Indoor Mobility (Ambulation): Independent Stairs: Independent PT Evaluation-Current Subjective Patient in bed pre tx, agrees to PT, has no complaints of pain, states her dizziness has resolved. Pt/Family Goals none stated Objective Patient Orientation: Person, Place, Situation Attachments: IV ROM/Strength ROM Lower Extremities WNL Strength Lower Extremities LLE (hip flexion 4-/5, knee flexion 4+/5, knee extension 4+/5, dorsiflexion 4+/5), RLE (hip flexion 4-/5, knee flexion 4+/5, knee extension 4+/5, dorsiflexion 4+/5) Neuromuscular (Tone, Coordination, Reflexes) Patient has intact peripheral vision, has difficulty tracking on the right side Sensory Hearing: Functional Sensation Right Lower Extremit: Intact Sensation Left Lower Extremity: Intact Transfers Roll Left to Right (QC): 6 Sit to Lying (QC): 6 Lying to Sitting/Side of Bed(Q: 6 Sit to Stand (QC): 6 Chair/Ouw-rf-Bwqwh Xfer(QC): 6 Gait Does the Patient Walk?: Yes Mode of Locomotion: Walk Anticipated Mode of Locomotion: Walk Walk 10 feet (QC): 6 Walk 50 ft with 2 Turns(QC): 6 Walk 150 ft (QC): 6 Gait Assistive Device: None Comments/Gait Description Patient ambulated 200' without an assistive device, pushing her own IV pole, with independence Balance Sitting Static: Normal Sitting Dynamic: Normal Standing Static: Normal Standing Dynamic: Normal Assessment/Needs Patient is independent with transfers and ambulation, has slight LE weakness. Patient encouraged to ambulate in the hallway on her own several times a day to maintain strength. Will discharge from PT services at this time Rehab Potential: Good PT Plan Treatment/Plan Treatment Plan: Discontinue PT Treatment Duration: Mar 24, 2021 Frequency: Patient and/or Family Agrees t: Yes Safety Risks/Education Patient Education: Gait Training, Transfer Techniques, Correct Positioning, Safety Issues Teaching Recipient: Patient Teaching Methods: Demonstration, Discussion Response to Teaching: Verbalize Understanding, Return Demonstration Discharge Recommendations Plan DC Time/GCodes Time In: 1028 Time Out: 1038 Total Billed Treatment Time: 10 Total Billed Treatment 1 visit EVL Dewayne' BOB PFEIFFER PT Mar 24, 2021 10:47
--- NOTE | 2021-03-24 10:49 | Occupational Therapy Eval ---
OT Evaluation-General/PLF Medical Diagnosis Admission Date Mar 23, 2021 at 12:54 Medical Diagnosis: nausea/vomiting, intractable vertigo Onset Date: Mar 22, 2021 Therapy Diagnosis Therapy Diagnosis: n/a Height/Weight Height (Feet): 5 Height (Inches): 4.00 Weight (Pounds): 185 Weight (Ounces): 0.0 Precautions Precautions/Isolations: Fall Prevention, Standard Precautions Referral Physician: Jacoby Referral Reason: Evaluation/Treatment Medical History Additional Medical History HTN, GERD, breast cancer Current History ED due to nausea and vomiting and severe dizziness Social History Home: Single Level Current Living Status: Spouse Entry Into Home: Stairs With Railing Steps Into Home: 2 ADL-Prior Level of Function SCALE: Activities may be completed with or without assistive devices. 5-Kpzvybfggz-xwosgvs completes the activity by him/herself with no assistance from a helper. 5-Set-up or Clean-up Assistance-helper sets up or cleans up; patient completes activity. Runge assists only prior to or following the activity. 4-Supervision or Touching Assistance-helper provides verbal cues and/or touching/steadying and/or contact guard assistance as patient completes activity. Assistance may be provided throughout the activity or intermittently. 3-Partial/Moderate Assistance-helper does LESS THAN HALF the effort. Runge lifts, holds or supports trunk or limbs, but provides less than half the effort. 2-Substantial/Maximal Assistance-helper does MORE THAN HALF the effort. Runge lifts or holds trunk or limbs and provides more than half the effort. 6-Gqtfucibw-izjhzw does ALL the effort. Patient does none of the effort to complete the activity. Or, the assistance of 2 or more helpers is required for the patient to complete the activity. If activity was not attempted, code reason: 7-Patient Refused. 9-Not Applicable-not attempted and the patient did not perform the activity before the current illness, exacerbation or injury. 10-Not Attempted due to Environmental Limitations-(lack of equipment, weather restraints, etc.). 88-Not Attempted due to Medical Conditions or Safety Concerns. ADL PLOF Comments IND all ADLs and mobility, no AE/AD Self Care: Independent Functional Cognition: Independent OT Current Status Subjective Pt in bed, agreeable to OT tx. Pt reports she is at baseline with ADLs and has no concerns with completing them upon discharge. Mental Status/Objective Patient Orientation: Person, Place, Time, Situation, Normal For Age Attachments: IV Current Upper Extremity ROM WFL, BUE shoulder flexion to approx 160 Upper Extremity Coordination WFL Upper Extremity Sensation WFL Upper Extremity Strength WFL, BUE grossly 4+/5 ADL-Treatment Eating (QC): 6 (Per pt report.) Oral Hygiene (QC): 6 (Per pt report.) Upper Body Dressing (QC): 6 (Per clinical judgment.) Toileting Hygiene (QC): 6 (Per pt report. ) Other Treatments Pt in bed, transferred supine to sit EOB independently. Pt provided information about PLOF and home set up, and participated in UE screen. Pt reports she toileted independently, able to unplug IV pole and plug back in afterwards. Pt has no concerns with her ability to complete ADLs at discharge and feels like she is at PLOF. Pt ambulated in hallways, managing her own IV pole independently, 200'. Pt returned to her room, transferring to bed. Post tx, pt in bed, call light in reach and all needs met. Education OT Patient Education: Correct positioning, Modified ADL techniques, Progress toward Goal/Update tx plan, Purpose of tx/functional activities, Rehab process Teaching Recipient: Patient Teaching Methods: Discussion Response to Teaching: Verbalize Understanding OT Jail Goals Alignment Specialist Goals 1=Demonstrate adherence to instructed precautions during ADL tasks. 2=Patient will verbalize/demonstrate understanding of assistive devices/modifications for ADL. 3=Patient will improve strength/tolerance for activity to enable patient to perform ADL's. OT Education/Plan Problem List/Assessment Assessment: No Skilled OT Needs ID'd No skilled OT services indicated as pt is at PLOF and independent with ADLs. Discharge Recommendations Plan/Recommendations: Discharge/Goals Met Treatment Plan/Plan of Care Patient would benefit from OT for education, treatment and training to promote i ndependence in ADL's, mobility, safety and/or upper extremity function for ADL's. Plan of Care: ADL Retraining, Functional Mobility Treatment Duration: Mar 24, 2021 Frequency: 1 time per week (eval only) Estimated Hrs Per Day: .25 hour per day Time/GCodes Start Time: 10:30 Stop Time: 10:38 Total Time Billed (hr/min): 8 Billed Treatment Time 1, COURTNEY SEAMAN OT Mar 24, 2021 10:49
--- NOTE | 2021-03-24 11:29 | History & Physical ---
VIGNESH ODEN 03/24/21 1129: History of Present Illness History of Present Illness Reason for visit/HPI Mrs. Munguia is an 80y/o F who was brought into the ER by EMS yesterday with concerns of nausea, vomiting and dizziness that began yesterday morning. She was given phenergen in the EMS with no change in symptoms. She states she was standing in the kitchen yesterday morning and felt like she was about to fall to the ground. She was helped to a chair by her and son and felt okay after a while. Later in the day she again felt dizzy and this time vomited, accompanied by urinary incontinence. This episode of dizziness lasted about an hour. She denies any positional changes associated with the onset of symptoms and has not experienced any hearing loss or tinnitus. She has had vertigo in the past in the 90s but it was never this bad and was not accompanied by vomiting. Her previous episode was controlled by hydration and didn't reoccur. She also describes that over the past year she has experienced nausea and occasionally vomiting when her drives her around. Date of Admission Mar 23, 2021 at 12:54 Date Seen by a Provider: Mar 24, 2021 Time Seen by a Provider: 10:00 I consulted on this patient on 03/24/21 11:15 Attending Physician Karla Mcdonough DO Admitting Physician Jeovany Pugh DO Consult Allergies and Home Medications Allergies Coded Allergies: No Known Drug Allergies (Unverified , 11/04/15) Patient Home Medication List Home Medication List Reviewed: Yes Diltiazem HCl (Diltiazem ER) 120 Mg Capsule.er, 120 MG PO DAILY, (Reported) Entered as Reported by: VALDEMAR GEORGES on 12/05/20 1141 Last Action: Converted Lisinopril (Lisinopril) 40 Mg Tablet, 40 MG PO DAILY, (Reported) Entered as Reported by: HILLARY FAIRCHILD on 03/23/21 5527 Last Action: Continued Discontinued Medications Lisinopril (Lisinopril) 20 Mg Tablet, 20 MG PO DAILY, (Reported) Discontinued Reason: No Longer Taking Entered as Reported by: VALDEMAR GEORGES on 12/05/20 1141 Last Action: Discontinued Pantoprazole Sodium (Pantoprazole Sodium) 20 Mg Tablet.dr, 20 MG PO DAILY, (Reported) Discontinued Reason: No Longer Taking Entered as Reported by: VALDEMAR GEORGES on 12/05/20 1141 Last Action: Discontinued Past Yhzrusx-Bagcgc-Oslyfc Hx Patient Social History Marrital Status: Tobacco Use?: No Smoking Status: Former Smoker Smokeless Tobacco Frequency: Never a User Use of E-Cig and/or Vaping dev: No Substance use?: No Alcohol Use?: No Pt feels they are or have been: No Immunizations Up To Date Date of Influenza Vaccine: Dec 10, 2020 First/Initial COVID19 Vaccinat: 03/13/2020 Second COVID19 Vaccination [place]: 04/12/2020 Tetanus Booster (TDap): Less Than 5 Years Hepatitis A: No Hepatitis B: No Date of Pneumonia Vaccine: Feb 22, 2014 Seasonal Allergies Seasonal Allergies: Yes Current Status status: No Advance Directives: No Communicates: Does Not Communicate Primary Language: Martiniquais Preferred Spoken Language: Martiniquais Is interpretation needed?: Yes Sensory deficits: Vision impairment Implanted or Applied Medical D: Orthopedic hardware Past Medical History Surgeries: Gallbladder, Hysterectomy, Orthopedic Hypertension Sexually Transmitted Disease: No Gastroesophageal Reflux Cataract Breast Did You Recieve Any Treatments: Yes What Type of Treatment Did You: Radiation, Surgical Intervention Blood Disorders: No Family Medical History Diabetes mellitus 19 FATHER G8 SISTER FH: breast cancer G8 SISTER FH: heart disease FH: melanoma G8 BROTHER FH: stroke 19 MOTHER Review of Systems Constitutional: No chills; dizziness; No fever, No weakness EENTM: No hearing loss, No ear pain, No blurred vision Respiratory: cough Cardiovascular: No chest pain, No palpitations Gastrointestinal: No abdominal pain, No constipation, No diarrhea Genitourinary: No dysuria; incontinence (stress) : No Psychiatric/Neurological: Denies Headache, Denies Numbness, Denies Tingling Physical Exam Vital Signs Vital Signs - First Documented 03/23/21 12:08 Temp 36.3 Pulse 76 Resp 18 B/P (MAP) 142/98 (113) Pulse Ox 96 Capillary Refill : Less Than 3 Seconds Height, Weight, BMI Height: 5'4.00" Weight: 185lbs. 0.0oz. 83.428282ct; 31.99 BMI Method:Stated General Appearance: No Apparent Distress HEENT: PERRL/EOMI Neck: Full Range of Motion, Normal Inspection Respiratory: Normal Breath Sounds, No Accessory Muscle Use Cardiovascular: Regular Rate, Rhythm, No Edema, No Gallop, No Murmur Gastrointestinal: Normal Bowel Sounds, Non Tender, Soft Extremity: No Pedal Edema Neurologic/Psychiatric: Alert, Oriented x3, licensed practical vocational nurse II-XII Norm as Tested Skin: Normal Color, Warm/Dry Assessment/Plan Assessment and Plan Problems: (1) Dizziness Assessment & Plan: Mrs. Jean is an 80 y/o F with a past medical history of hypertension and gerd with a hiatal hernia admitted for concerns of dizziness, nausea and vomiting. Dizziness with N/V - CT w/o showed no abnormalities - CTA showed some plaquing, carotid US showed no significant stenosis - possible vestibular neuritis - could be due to dehydration - support with IV fluids (LR) - start PT/OT today - zofran prn for n/v HTN - continue home lisinopril and diltiazam GERD - home pantoprazole prn Admission Diagnosis Admission Status: Observation KARLA MCDONOUGH 03/25/21 0706: History of Present Illness History of Present Illness Reason for visit/HPI CC: Vertigo HPI: 80 yr old [facility] pt of Dr. Pugh who has a past medical history of vertigo in the , who is very active and walks at the mall several times a week with her . She presented to the ER with severe ALCON and intractable vertigo. She was given IV fluids overnight and now she feels good. She does have a scopolamine patch still in place. At this time I will initiate PT and OT. And as long as she is safe we will go ahead and discharge in improved condition with close follow-up with Dr. Pugh. Allergies and Home Medications Allergies Coded Allergies: No Known Drug Allergies (Unverified , 11/04/15) Patient Home Medication List Home Medication List Reviewed: Yes Diltiazem HCl (Diltiazem ER) 120 Mg Capsule.er, 120 MG PO DAILY, (Reported) Entered as Reported by: VALDEMAR GEORGES on 12/05/20 1141 Last Action: Converted Lisinopril (Lisinopril) 40 Mg Tablet, 40 MG PO DAILY, (Reported) Entered as Reported by: HILLARY FAIRCHILD on 03/23/21 6227 Last Action: Continued Discontinued Medications Lisinopril (Lisinopril) 20 Mg Tablet, 20 MG PO DAILY, (Reported) Discontinued Reason: No Longer Taking Entered as Reported by: VALDEMAR GEORGES on 12/05/20 1141 Last Action: Discontinued Pantoprazole Sodium (Pantoprazole Sodium) 20 Mg Tablet.dr, 20 MG PO DAILY, (Reported) Discontinued Reason: No Longer Taking Entered as Reported by: VALDEMAR GEORGES on 12/05/20 1141 Last Action: Discontinued Past Gfqnawl-Nhipfd-Geyudr Hx Patient Social History Marrital Status: Employed/Student: retired Smoking Status: Never a Smoker Past Medical History Hypertension Family Medical History Diabetes mellitus 19 FATHER G8 SISTER FH: breast cancer G8 SISTER FH: heart disease FH: melanoma G8 BROTHER FH: stroke 19 MOTHER Review of Systems Constitutional: see HPI, malaise, weakness EENTM: no symptoms reported Respiratory: no symptoms reported Cardiovascular: no symptoms reported Gastrointestinal: no symptoms reported Genitourinary: no symptoms reported Musculoskeletal: no symptoms reported Skin: no symptoms reported Psychiatric/Neurological: No Symptoms Reported All Other Systems Reviewed Negative Unless Noted: Yes Physical Exam General Appearance: No Apparent Distress, WD/WN Eyes: Bilateral Eye Normal Inspection, Bilateral Eye PERRL, Bilateral Eye EOMI HEENT: PERRL/EOMI, Normal ENT Inspection, Pharynx Normal Neck: Full Range of Motion, Normal Inspection, Non Tender, Supple, Carotid Bruit Respiratory: Chest Non Tender, Lungs Clear, Normal Breath Sounds, No Accessory Muscle Use, No Respiratory Distress Cardiovascular: Regular Rate, Rhythm, No Edema, No Gallop, No JVD, No Murmur, Normal Peripheral Pulses Gastrointestinal: Normal Bowel Sounds, No Organomegaly, No Pulsatile Mass, Non Tender, Soft Back: Normal Inspection, No CVA Tenderness, No Vertebral Tenderness Extremity: Normal Capillary Refill, Normal Inspection, Normal Range of Motion, Non Tender, No Calf Tenderness, No Pedal Edema Neurologic/Psychiatric: Alert, Oriented x3, No Motor/Sensory Deficits, Normal Mood/Affect Skin: Normal Color, Warm/Dry Lymphatic: No Adenopathy Assessment/Plan Assessment and Plan Assessment: Intractable vertigo Nausea and vomiting Dehydration Hypertension Plan: Discharge home after therapy No med changes Admission Diagnosis Admission Status: Observation Supervisory-Addendum Brief Verification & Attestation Participated in pt care: history, MDM, physical Personally performed: exam, history, MDM, supervision of care Care discussed with: Medical Student Procedures: n/a Results interpretation: Verified all documentation Verification and Attestation of Medical Student E/M Service A medical student performed and documented this service in my presence. I reviewed and verified all information documented by the medical student and made modifications to such information, when appropriate. I personally performed the physical exam and medical decision making. Karla Mcdonough, Mar 25, 2021,07:04 VIGNESH ODEN Mar 24, 2021 11:29 KARLA MCDONOUGH DO Mar 25, 2021 07:06
[2021-03-24] MEDS ORDERED: dilTIAZem120 MG (CARDIZEM CD) CAP PO SCH (18:00)
[2021-03-24] MEDS ORDERED: lisINopril 40 MG (PRINIVIL) TABLET PO SCH (18:00)
[2021-03-26] MEDS ORDERED: SCOPOLAMINE PATCH REMOVAL TP SCH (11:59)
[2021-03-26] MEDS ORDERED: SCOPOLAMINE 1.5 MG (TRANSDERM-SCOP) PATCH TOP SCH (12:00)
--- NOTE | 2021-03-30 10:40 | Physician Query-Final Dx ---
Final Diagnosis Give Final Diagnosis Please give Final Diagnosis WILLIAM MARQUEZ Mar 30, 2021 10:40
== END 2021-03-24 12:15 | disposition home or self-care (01) ==
LOC: EDUNIT# 11:52 → ER 11:55 → 4TH 12:54 → UNDOADMOB 12:54 → 4TH 15:33 → UNDODISOB 03-24 12:15
PROVIDERS: ADMIT Internal Medicine; ATTEND Internal Medicine
DX: R42 Dizziness and giddiness (principal); R11.2 Nausea with vomiting, unspecified; I10 Essential (primary) hypertension; K21.9 Gastro-esophageal reflux disease without esophagitis; E86.0 Dehydration; G47.30 Sleep apnea, unspecified; R73.03 Prediabetes; Z87.891 Personal history of nicotine dependence; Z79.899 Other long term (current) drug therapy
CPT/HCPCS: 70496; 70498; 74019; 80048; 80053; 81000; 83690; 85025 ×2; 85610; 93880; 96374; 97161; 97165; 99283; G0378; 36415

== ENCOUNTER → 2021-06-29 | Outpatient (CLI) | payer MEDICARE, OTHER ==
[~2021-06-29] MED LIST changes: +LISI40TA9 PO
--- NOTE | 2021-06-30 08:38 | Diagnostic Imaging Report ---
3-D bilateral diagnostic mammogram with CAD. Indication: Right breast cancer This study was compared to the priors dating back to 03/02/2018. The patient has had a right lumpectomy for carcinoma in 2019. At this time there are no current complaints. The postsurgical changes involving the right breast seen previously are again evident and not significantly changed. As on the previous study there are calcifications in the lumpectomy site. These may be secondary to fat necrosis. The calcified nodular density in the left breast seen previously is again evident and no different. There is heterogeneously dense breast tissue bilaterally. This does limit the sensitivity of this exam. There is no primary or secondary sign of malignancy noted. Impression: 1. The postsurgical changes involving the right breast appear stable. There is no evidence for malignancy. 2. A followup exam in one year would be recommended for continued evaluation. ACR BI-RADS Category 2: Benign findings. Result letter will be mailed to the patient. Note: At least 10% of breast cancer is not imaged by mammography. Dictated by: Dictated on workstation # [id number]
== END ==
LOC: RAD 13:15
PROVIDERS: ATTEND Internal Medicine Hematology & Oncology
DX: C50.419 Malignant neoplasm of upper-outer quadrant of unspecified female breast (principal); Z98.890 Other specified postprocedural states
CPT/HCPCS: 77066; G0279; 77062

== ENCOUNTER → 2021-07-17 | Outpatient (CLI) | payer MEDICARE, OTHER ==
[~2021-07-17] MED LIST changes: +CATHETER FLUSH 10 ML SYR IV PRN; +HOLD METFORMIN - RECEIVED CONTRAST 20 ML VIAL IV SCH; +IOHEXOL 350 MG/ML 100 ML (OMNIPAQUE 350) VIAL IV ONE; +NS 100 ML (IVPB) BAG IV ONE
--- NOTE | 2021-07-17 11:58 | Diagnostic Imaging Report ---
PROCEDURE: CT angiography of the head and CT angiography of the neck with and without contrast. TECHNIQUE: Contiguous noncontrast images were obtained from the skull base through the vertex. After intravenous contrast administration, helical CT angiography of the neck was performed. Source data was reformatted into 3D MIP projections. Delayed post contrast acquisition was also obtained. Auto Exposure Controls were utilized during the CT exam to meet ALARA standards for radiation dose reduction. INDICATION: Vertigo for 4 months. History of breast cancer. COMPARISON: 03/23/2021. FINDINGS: CTA Neck: The visualized portions of the aortic arch demonstrate no evidence of aneurysm or dissection. There is conventional branching pattern of the great vessels of the aorta. The brachiocephalic artery is normal in course and caliber. The right and left common carotid origins are unremarkable. The origin of the left subclavian artery is patent. The common carotid arteries and internal carotid arteries demonstrate a mildly tortuous course. There is calcified atherosclerotic plaque in the bilateral carotid bulbs and proximal internal carotid arteries without flow-limiting stenosis. No evidence of dissection in the carotid systems. The external carotid arteries are patent and unremarkable. The left vertebral artery is dominant. The origin of the right vertebral artery is seen and is unremarkable. The origin of the left vertebral artery is seen and is unremarkable. There is no focal stenosis seen within the neck. There is no dissection. The vertebral arteries are well visualized to up to the level of the basilar artery. The osseous structures of the cervical spine are unremarkable. Included views through the lung apices demonstrate no focal consolidation. CTA brain: Atherosclerotic plaque is seen in the zamarripa of the bilateral terminal internal carotid arteries without significant stenosis. No stenosis is seen in the bilateral anterior, middle, and posterior cerebral arteries. No evidence of aneurysm the point [place] of [place]. In the posterior circulation, both of the vertebral arteries demonstrate normal opacification. Both the right and left PICA arteries are identified. The basilar artery is normal in course and caliber. The terminal branch vessels including the superior cerebellar arteries unremarkable. CT head: No large acute territorial ischemia, mass, or hemorrhage. No midline shift or mass effect. Decreased attenuation is seen in the periventricular and subcortical white matter. The ventricles and cortical sulci are prominent. The basilar cisterns are patent and unremarkable. The calvarium is intact. The visualized paranasal sinuses are clear. IMPRESSION: 1. No stenosis or aneurysm in the point [place] of [place]. No large vessel occlusion. 2. No stenosis or dissection the bilateral carotid and vertebral arteries. 3. No large acute territorial ischemia, mass, or hemorrhage. Dictated by: Dictated on workstation # [id number]
== END ==
LOC: RAD 11:01
PROVIDERS: ATTEND Otolaryngology
DX: R42 Dizziness and giddiness (principal)
CPT/HCPCS: 70496; 70498

== ENCOUNTER → 2021-09-24 | Outpatient (CLI) | payer MEDICARE, OTHER ==
[2021-09-24 09:26] LABS: BILIRUBIN,TOTAL 0.4 MG/DL (0.1-1.0); CALCIUM 9.2 MG/DL (8.5-10.1); CREATININE SERUM 1.09 MG/DL (0.60-1.30); TOTAL PROTEIN 6.4 GM/DL (6.4-8.2)
--- NOTE | 2021-09-24 09:52 | Diagnostic Imaging Report ---
EXAMINATION: CT angiography of the chest. TECHNIQUE: Contrast enhanced thin section helical images were obtained through the chest with intravenous contrast timed for the optimal opacification of the arterial structures per CTA protocol. Post-processing, reconstructions and interpretation of angiographic images of the vessels was performed. 3D MIP reconstructions were performed and reviewed. All CT scans use one or more of the following dose optimizing techniques: automated exposure control, MA and/or KvP adjustment based on a patient size and exam type, or iterative reconstruction. HISTORY: Chest pain and shortness of breath. COMPARISON: None available. FINDINGS: Vascular: No filling defects within the pulmonary arteries. Thoracic aorta is normal in caliber. Calcification of the aorta and coronary vessels. Thyroid: The thyroid is normal. Mediastinum: Heart size is normal without significant pericardial effusion. No suspicious lymphadenopathy. Lungs and airways: The lungs are clear without consolidation, pleural effusion, or pneumothorax. There is atelectasis within the dependent lungs. The airways are normal. Upper abdomen: Bilateral renal cysts are present which require no followup. The gallbladder is surgically absent. Musculoskeletal: Degenerative changes of the spine without suspicious osseous lesion or compression fracture. IMPRESSION: No findings of pulmonary embolus or other acute abnormality in the chest. Dictated by: Dictated on workstation # [id number]
== END ==
LOC: RAD 09:00
PROVIDERS: ATTEND Internal Medicine
DX: R06.00 Dyspnea, unspecified (principal); R07.9 Chest pain, unspecified; R06.02 Shortness of breath
CPT/HCPCS: 36415; 71275; 80053

== ENCOUNTER → 2021-10-02 | Outpatient (CLI) | payer MEDICARE, OTHER ==
[~2021-10-02] VITALS: Ht 162 cm; Wt 90.0 kg
[~2021-10-02] MED LIST changes: -CATHETER FLUSH 10 ML SYR IV PRN; +CATHETER FLUSH 10 ML SYR IVP PRN; -HOLD METFORMIN - RECEIVED CONTRAST 20 ML VIAL IV SCH; -IOHEXOL 350 MG/ML 100 ML (OMNIPAQUE 350) VIAL IV ONE; -NS 100 ML (IVPB) BAG IV ONE; +REGADENOSON 0.4 MG/5 ML SYR (LEXISCAN) IV ONE
[2021-10-02 07:47] VITALS: BP 207/100
--- NOTE | 2021-10-02 12:56 | NUCLEAR STRESS TEST ---
REG[facility] NUCLEAR STRESS Date of procedure: 10/02/2021. Primary care provider: Jeovany Pugh DO Admitting physician: Jeovany Pugh DO. INDICATION: Hypertension, dyspnea and abnormal electrocardiogram. BASELINE ELECTROCARDIOGRAM: Sinus rhythm with nonspecific intraventricular conduction delay, possible old lateral infarct and nonspecific ST-T wave changes. STRESS TEST PROCEDURE: This is the nuclear portion only. Please see separate report for stress test findings. NUCLEAR PROCEDURE: The patient was administered 10.5 mCi of intravenous technetium 99m Tetrofosmin at rest for the rest images. The patient was subsequently administered 31.8 mCi of intravenous technetium 99m Tetrofosmin at peak stress for the stress images. Following an appropriate wait after each injection, imaging was obtained. The images were subsequently processed and reformatted in the usual views. Gated imaging was obtained. The image quality was adequate with a mild degree of gastrointestinal attenuation artifact. CT attenuation correction was used as a adjunct to standard imaging. Both the corrected and uncorrected images were reviewed for interpretation. NUCLEAR RESULTS: There was a large, moderate intensity, reversible mid to distal anterior and apical defect with a large amount of inducible ischemia with a summed stress score of 22 and a summed difference score of 21. There was normal left ventricular chamber size with an end-diastolic volume of 53 mL and an end- systolic volume of 15 mL. There was no evidence of transient ischemic dilatation. The TID ratio was 1.19. There was normal wall motion in all segments with a calculated ejection fraction of 71%. IMPRESSION: 1. This is the nuclear portion only of a regadenoson nuclear stress test. P ernesto see separate report for stress test findings. 2. There was a large, moderate intensity, reversible mid to distal anterior and apical defect with a large amount of inducible ischemia with a summed stress score of 22 and a summed difference score of 21. 3. There was normal wall motion in all segments with a calculated ejection fraction of 71%. 4. This is an abnormal result representing an overall high risk for possible future coronary ischemic events. Certain portions of this document may have been dictated utilizing voice recognition technology. Inherent to this technology, typographical and grammatical errors may exist. As much as I am diligent to identify and correct these mistakes, some errors may remain in the document. PEDRO STONE JR, MD Oct 02, 2021 12:56
== END ==
LOC: CARD 07:00
PROVIDERS: ATTEND Internal Medicine
DX: J45.40 Moderate persistent asthma, uncomplicated (principal); G47.31 Primary central sleep apnea; I10 Essential (primary) hypertension
CPT/HCPCS: 78452; 93017; A9502

== ENCOUNTER → 2021-10-15 | Outpatient (CLI) | payer MEDICARE, OTHER ==
[~2021-10-15] MED LIST changes: -CATHETER FLUSH 10 ML SYR IVP PRN; -REGADENOSON 0.4 MG/5 ML SYR (LEXISCAN) IV ONE
== END ==
LOC: CARD 08:02
PROVIDERS: ATTEND Internal Medicine Cardiovascular Disease
DX: R94.39 Abnormal result of other cardiovascular function study (principal); I35.0 Nonrheumatic aortic (valve) stenosis
CPT/HCPCS: 93306

== ENCOUNTER → 2021-10-27 | Outpatient (CLI) | payer MEDICARE, OTHER ==
[~2021-10-27] MED LIST changes: +ALBU8.5H9 IH; +AMT10T PO; +ASPI-1238 PO; +CHLO-159 PO; +CHOL100048 PO; +FLUT1BLS3 IH; +MAGN250T13 PO; +MELA5TAB14 PO; +MULT-974 PO; +OMEG1CAP58 PO; +PANT40TA52 PO; +POTA99CA PO; +ROSU10TA28 PO; +VIT1CAPS44 PO
[2021-10-27 07:18] LABS: INR 0.9 (0.8-1.4)
[2021-10-27 16:00] LABS: BASOPHILS # (AUTO) 0.1 10^3/uL (0.0-0.1); BASOPHILS % (AUTO) 1 % (0-10); EOSINOPHILS # (AUTO) 0.1 10^3/uL (0.0-0.3); EOSINOPHILS % (AUTO) 2 % (0-10); HEMATOCRIT 42 % (35-52); HEMOGLOBIN 13.5 g/dL (11.5-16.0); LYMPHOCYTES # (AUTO) 2.5 10^3/uL (1.0-4.0); LYMPHOCYTES % (AUTO) 35 % (12-44); MEAN CORPUSCULAR HEMOGLOBIN 30 pg (25-34); MEAN CORPUSCULAR HGB CONC 32 g/dL (32-36); MEAN CORPUSCULAR VOLUME 93 fL (80-99); MEAN PLATELET VOLUME 11.2 fL (9.0-12.2); MONOCYTES # (AUTO) 0.5 10^3/uL (0.0-1.0); MONOCYTES % (AUTO) 7 % (0-12); NEUTROPHILS % (AUTO) 56 % (42-75); PLATELET COUNT 313 10^3/uL (130-400); WHITE BLOOD COUNT 7.2 10^3/uL (4.3-11.0)
[2021-10-27 16:04] LABS: POTASSIUM 4.2 MMOL/L (3.6-5.0)
[2021-10-27 16:05] LABS: CALCIUM 9.4 MG/DL (8.5-10.1)
[2021-10-27 16:09] LABS: CREATININE SERUM 1.1 MG/DL (0.60-1.30)
== END ==
LOC: LAB 06:48
PROVIDERS: ATTEND Internal Medicine Cardiovascular Disease
DX: I12.9 Hypertensive chronic kidney disease with stage 1 through stage 4 chronic kidney disease, or unspecified chronic kidney disease (principal); N18.31 Chronic kidney disease, stage 3a; G47.33 Obstructive sleep apnea (adult) (pediatric); I65.23 Occlusion and stenosis of bilateral carotid arteries; E66.9 Obesity, unspecified; R94.39 Abnormal result of other cardiovascular function study; Z71.89 Other specified counseling
CPT/HCPCS: 36415; 80048; 85025; 85610

== ENCOUNTER 2021-10-29 08:53 | Day surgery (SDC) | payer MEDICARE, OTHER ==
[~2021-10-29] VITALS: Ht 162.6 cm; Wt 91.8 kg
[2021-10-29] VITALS (9 sets, daily range): BP systolic 108–181; BP diastolic 56–96
[~2021-10-29 08:53] MED LIST changes: -ALBU8.5H9 IH; -AMT10T PO; -ASPI-1238 PO; -CHLO-159 PO; -CHOL100048 PO; -FLUT1BLS3 IH; -MAGN250T13 PO; -MELA5TAB14 PO; -MULT-974 PO; -OMEG1CAP58 PO; -PANT40TA52 PO; -POTA99CA PO; -ROSU10TA28 PO; -VIT1CAPS44 PO
[2021-10-29] MEDS ORDERED: HEParin (CATH LAB) 2,000 ML IV ONE (09:05)
[2021-10-29] MEDS ORDERED: NS IV 1000 ML 1,000 ML ONE (09:05)
[2021-10-29] MEDS ORDERED: LIDOCAINE 1% INJ 20 ML VIAL ONE (09:05)
[2021-10-29] MEDS ORDERED: VERAPAMIL 5 MG/2 ML (CALAN) VIAL IV ONE (09:07)
[2021-10-29] MEDS ORDERED: MIDAZOLAM 2 MG/2 ML (VERSED) VIAL ONE (09:08)
[2021-10-29] MEDS ORDERED: HEParin 1000 UNIT/ML (10ML VIAL) FOR BOLUS ONE (09:08)
[2021-10-29] MEDS ORDERED: fentaNYL INJ 100 MCG/2 ML AMP ONE (09:08)
[2021-10-29] MEDS ORDERED: NITRO DRIP 25000 MCG/D5W 250 ML IV ONE (09:08)
[2021-10-29] MEDS ORDERED: CATHETER FLUSH 10 ML SYR IV PRN (09:15)
[2021-10-29] MEDS ORDERED: ASPIRIN 81 MG CHEW (CHILDREN'S ASA) PO ONE (09:15)
[2021-10-29] MEDS ORDERED: NS IV 1000 ML 1,000 ML IV ONE (09:15)
[2021-10-29] MEDS ORDERED: ASPIRIN 81 MG CHEW (CHILDREN'S ASA) ONE (09:22)
--- NOTE | 2021-10-29 09:30 | Pre-Op Note & Conscious Sedat ---
Pre-Operative Progress Note Date H&P Reviewed: Oct 29, 2021 Time H&P Reviewed: 09:25 History & Physical: H&P Reviewed, Patient Examed, No changes noted Pre-Op Diagnosis: Coronary artery disease with angina and abnormal nuclear stress test Conscious Sedation Pre-Proced ASA Score 2 For ASA 3 and 4: Consider anesthesia and medical clearance. Also, for patients with a history of failed moderate sedation consider anesthesia. Airway Lungs Heart ASA score ASA 1: a normal healthy patient ASA 2: a patient with a mild systemic disease (mid diabetes, controlled hypertension, obesity ASA 3: a patient with a severe systemic disease that limits activity (angina, COPD, prior Myocardial infarction) ASA 4: a patient with an incapacitating disease that is a constant threat to life (CHF, renal failure) ASA 5: a moribund patient not expected to survive 24 hrs. (ruptured aneurysm) ASA 6: a declared brain- patient whose organs are being harvested. For emergent operations, add the letter E after the classification Mallampati Classification Grade 2 Sedation Plan Analgesia, Amnesia, Plan communicated to team members, Discussed options with patient/fam, Discussed risks with patient/fam The patient is an appropriate candidate to undergo the planned procedure, sedation, and anesthesia. The patient immediately re-assessed prior to indication. Given the patient's current clinical status, she is considered moderately frail. She has no history of heart failure. PEDRO STONE JR, MD Oct 29, 2021 09:30
[2021-10-29] MEDS ORDERED: CHOL100048 PO (09:31)
[2021-10-29] MEDS ORDERED: MULT-974 PO (09:31)
[2021-10-29] MEDS ORDERED: FLUT1BLS3 IH (09:31)
[2021-10-29] MEDS ORDERED: CYAN50009 PO (09:31)
[2021-10-29] MEDS ORDERED: PANT40TA52 PO (09:31)
[2021-10-29] MEDS ORDERED: POTA99CA PO (09:31)
[2021-10-29] MEDS ORDERED: MELA5TAB14 PO (09:31)
[2021-10-29] MEDS ORDERED: OMEG1CAP58 PO (09:31)
[2021-10-29] MEDS ORDERED: MAGN250T13 PO (09:31)
[2021-10-29] MEDS ORDERED: VIT1CAPS44 PO (09:31)
[2021-10-29] MEDS ORDERED: ASPI-1238 PO (09:31)
[2021-10-29] MEDS ORDERED: AMT10T PO (09:31)
[2021-10-29] MEDS ORDERED: ALBU8.5H9 IH (09:31)
[2021-10-29] MEDS ORDERED: CHLO-159 PO (09:31)
[2021-10-29] MEDS ORDERED: ROSU10TA28 PO (10:14)
[2021-10-29] MEDS ORDERED: NS IV 1000 ML 1,000 ML IV SCH (10:15)
--- NOTE | 2021-10-29 10:18 | Cardiac Cath Report ---
CARDIAC CATHETERIZATION DATE OF PROCEDURE: 10/29/2021 INDICATION: Coronary artery disease with angina pectoris and abnormal nuclear stress test. HISTORY: The patient is a 81 year old female who has been having some exertional dyspnea over the past several months. Her primary care provider had her undergo a nuclear stress test that showed a large anterior ischemic defect with a normal ejection fraction. I then saw the patient in consultation and started her on long-acting nitrates in addition to her diltiazem. She still has ongoing dyspnea on exertion which could be a sign of atypical angina. Therefore, I recommended further evaluation with a cardiac catheterization. Given her current clinical status and age, she is considered moderately frail. She has no known history of heart failure. PROCEDURES PERFORMED: 1. Left heart catheterization with hemodynamic measurements. 2. Diagnostic [place] coronary angiography. PROCEDURE DESCRIPTION: After informed consent and in the fasting state, left heart catheterization was performed through the right radial artery utilizing a 6 Faroese system by percutaneous approach. Standard 5 Josiane catheters were utilized for the diagnostic portion of the procedure. All catheters were exchanged over a guidewire. Following the procedure, a vascular band was applied to the radial artery access site and the sheath was removed with good hemostasis. RESULTS: HEMODYNAMICS: Aortic pressure was 117/64 mmHg. The left ventricular pressure was 117/0 mmHg with a left ventricular end-diastolic pressure of 3 mmHg. There was no significant pressure gradient upon pullback across the aortic valve. CORONARY ANGIOGRAPHY: The coronary arteries were moderately calcified. Left main coronary artery: Free of significant disease. Left anterior descending coronary artery: There was a 40% stenosis in the midsegment. Left circumflex coronary artery: Codominant and free of significant disease. Right coronary artery: Codominant with a high anterior and downward takeoff free of significant disease. IMPRESSION: 1. Normal left heart pressures. 2. Mild calcific single-vessel coronary artery disease involving the mid left anterior descending coronary artery with a 40% stenosis as outlined above. 3. The patient is known to have normal left ventricular systolic function with an estimated ejection fraction of 60-65% by echocardiogram performed on . Certain portions of this document may have been dictated utilizing voice recognition technology. Inherent to this technology, typographical and grammatical errors may exist. As much as I am diligent to identify and correct these mistakes, some errors may remain in the document. PEDRO STONE JR, MD Oct 29, 2021 10:18
== END 2021-10-29 13:10 | disposition home or self-care (01) ==
LOC: CATH 08:53 → SDC 10:39 → CATH 13:10
PROVIDERS: ATTEND Internal Medicine Cardiovascular Disease
DX: I25.119 Atherosclerotic heart disease of native coronary artery with unspecified angina pectoris (principal); I12.9 Hypertensive chronic kidney disease with stage 1 through stage 4 chronic kidney disease, or unspecified chronic kidney disease; N18.31 Chronic kidney disease, stage 3a; I25.84 Coronary atherosclerosis due to calcified coronary lesion; E78.2 Mixed hyperlipidemia; I65.23 Occlusion and stenosis of bilateral carotid arteries; G47.33 Obstructive sleep apnea (adult) (pediatric); E66.9 Obesity, unspecified; Z87.891 Personal history of nicotine dependence; Z85.3 Personal history of malignant neoplasm of breast; Z79.82 Long term (current) use of aspirin; Z79.899 Other long term (current) drug therapy; Z68.34 Body mass index [BMI] 34.0-34.9, adult
CPT/HCPCS: 87081; 93458; C1894

== ENCOUNTER → 2022-06-23 | Outpatient (CLI) | payer MEDICARE, OTHER ==
[~2022-06-23] MED LIST changes: +ALBU8.5H9 IH; +AMT10T PO; +ASPI-1238 PO; +CHLO-159 PO; +CHOL100048 PO; +FLUT1BLS3 IH; +MAGN250T13 PO; +MELA5TAB14 PO; +MULT-974 PO; +OMEG1CAP58 PO; +PANT40TA52 PO; +POTA99CA PO; +ROSU10TA28 PO; +VIT1CAPS44 PO
[2022-06-23 16:11] LABS: ALBUMIN 3.9 GM/DL (3.2-4.5); BILIRUBIN,TOTAL 0.5 MG/DL (0.1-1.0); CALCIUM 9.2 MG/DL (8.5-10.1); CREATININE SERUM 1.16 MG/DL (0.60-1.30); POTASSIUM 3.9 MMOL/L (3.6-5.0); TOTAL PROTEIN 5.7 GM/DL (6.4-8.2)
[2022-06-23 16:12] LABS: HEMATOCRIT 37 % (35-52); HEMOGLOBIN 12.1 g/dL (11.5-16.0); MEAN CORPUSCULAR HEMOGLOBIN 30 pg (25-34); MEAN CORPUSCULAR HGB CONC 33 g/dL (32-36); MEAN CORPUSCULAR VOLUME 91 fL (80-99); MEAN PLATELET VOLUME 10.2 fL (9.0-12.2); PLATELET COUNT 275 10^3/uL (130-400); WHITE BLOOD COUNT 7.1 10^3/uL (4.3-11.0)
== END ==
LOC: LAB 15:44
PROVIDERS: ATTEND Internal Medicine Cardiovascular Disease
DX: I25.10 Atherosclerotic heart disease of native coronary artery without angina pectoris (principal); I65.23 Occlusion and stenosis of bilateral carotid arteries; I10 Essential (primary) hypertension; E78.2 Mixed hyperlipidemia
CPT/HCPCS: 36415; 80053; 80061; 83036; 84443; 85027

== ENCOUNTER 2022-06-30 11:24 | Outpatient (RCR) | payer MEDICARE, OTHER | END 2022-07-21 | disposition home or self-care (01) | LOC: CR 11:24 | PROVIDERS: ATTEND Internal Medicine Cardiovascular Disease | DX: R06.00 Dyspnea, unspecified (principal) ==

== ENCOUNTER → 2022-06-30 | Outpatient (CLI) | payer MEDICARE, OTHER ==
--- NOTE | 2022-06-30 15:28 | Diagnostic Imaging Report ---
INDICATION: Routine screening. COMPARISON: 06/29/2021 and 06/23/2020. TECHNIQUE: 2D and 3D bilateral screening mammography was performed with CAD. FINDINGS: Scattered fibroglandular densities are identified bilaterally. Post-therapeutic changes in the right breast are noted with multiple surgical clips as well as benign calcifications. A partially calcified nodule in the left breast is stable. No new mass or malignant appearing microcalcifications are seen. The axillae are unremarkable. IMPRESSION: No mammographic features suspicious for malignancy are identified. ACR BI-RADS Category 2: Benign findings. Result letter will be mailed to the patient. Note: At least 10% of breast cancer is not imaged by mammography. Dictated by: Dictated on workstation # [id number]
== END ==
LOC: RAD 10:19
PROVIDERS: ATTEND Internal Medicine Hematology & Oncology
DX: Z12.31 Encounter for screening mammogram for malignant neoplasm of breast (principal); Z85.3 Personal history of malignant neoplasm of breast
CPT/HCPCS: 77063; 77067

== ENCOUNTER → 2023-01-07 | Outpatient (CLI) | payer MEDICARE, OTHER ==
[~2023-01-07] MED LIST changes: +DILT120C71 PO; -DILT120C85 PO
== END ==
LOC: CARD 10:07
PROVIDERS: ATTEND Internal Medicine Cardiovascular Disease
DX: I11.9 Hypertensive heart disease without heart failure (principal); I34.0 Nonrheumatic mitral (valve) insufficiency; I25.10 Atherosclerotic heart disease of native coronary artery without angina pectoris
CPT/HCPCS: 93306